=== PATIENT | female | born 1955 | race Caucasian/White ===

== ENCOUNTER 2019-11-24 14:43 | Outpatient (CLI) | payer BC, SELFPAY ==
--- NOTE | ~2019-11-24 | DEXA_ITS ---
Bone Density Report Name: Katlyn Strong Age: 64 Sex: Female Ethnicity: White Date of : 1955 Indication: postmenopausal; height loss; prior fracture; Referring Provider: Salome Johnson Study: Bone densitometry was performed. Exam Date: November 24, 2019 Accession number: [id number] Bone Density: Region BMD T-score Z-score Classification AP Spine (L1-L4) 1.020 -0.2 1.5 Normal Femoral Neck (Left) 0.625 -2.0 -0.5 Osteopenia Total Hip (Left) 0.798 -1.2 0.0 Osteopenia Total Hip Bilateral Avg 0.797 -1.2 0.0 Osteopenia Femoral Neck (Right) 0.662 -1.7 -0.2 Osteopenia Total Hip (Right) 0.795 -1.2 0.0 Osteopenia World Health Organization criteria for BMD impression classify patients as: Normal (T-score at or above -1.0), Osteopenia (T-score between -1.0 and -2.5), or Osteoporosis (T-score at or below -2.5). 10-year Fracture Risk: FRAX not reported because: Treated for osteoporosis Clinical Information Provided by Patient: Has had a low trauma fracture Smokes Is being treated for osteoporosis Has used the following medications: Vitamin D, Calcium Patient maximum height was 68 Menopause Age: 50 No regular weight bearing exercise Drinks caffeinated beverages Onset of menses at age 14 Number of children 2 Impression: The patient has low bone mass, based on the Left Femoral Neck T-score. The patient has risk factors, including: smoking, previous fracture. Discussion: It is important to ask patients whether they are taking their medications and to encourage continued and appropriate compliance with their osteoporosis therapies to reduce fracture risk. It is also important to review their risk factors and encourage appropriate calcium and vitamin D intakes, exercise, fall prevention and other lifestyle measures. Follow-Up: Consider a repeat BMD and Vertebral Fracture Assessment (VFA) exam in 2 years or sooner if medically necessary, to reassess this patient's status. Reported by: MELCHOR on 11/24/2019 3:13:00 PM. Reviewed, dictated and finalized at location A. COLTEN
--- NOTE | ~2019-11-24 | MM_ITS ---
EXAMINATION: MM screening shayna BI w philip HISTORY: Screening mammogram TECHNIQUE: Craniocaudal and mediolateral oblique 3-D tomosynthesis images were obtained and synthetic 2-D images were generated. CAD analysis was submitted and interpreted. COMPARISON: 04/18/2018, 08/03/2014 bilateral digital screening mammogram examinations BREAST PARENCHYMAL COMPOSITION: There are scattered areas of fibroglandular density. FINDINGS: Possible 4 mm mass situated anteriorly in the inner aspect of the mid medial right breast ( craniocaudal image 39/79). Diagnostic right mammogram and right breast ultrasound examination are rec ommended. Otherwise there is is no evidence of suspicious mass, calcification, or architectural distortion to suggest malignancy in either breast. There has been no other suspicious interval change. IMPRESSION: 1. Possible 4 mm mass, right breast 2. Diagnostic right mammogram and right breast ultrasound examination are recommended. BI-RADS Category 0: Incomplete: Needs additional imaging evaluation. Reviewed, dictated and finalized at location A. IMPRESSION: 1. Possible 4 mm mass, right breast 2. Diagnostic right mammogram and right breast ultrasound examination are recom mended. BI-RADS Category 0: Incomplete: Needs additional imaging evaluation.
== END 2019-11-24 14:44 | disposition home or self-care (01) ==
LOC: ANHIMG 14:45
PROVIDERS: PCP Internal Medicine; Visit Provider Nurse Practitioner
DX: Z12.31 Encounter for screening mammogram for malignant neoplasm of breast (principal); Z13.820 Encounter for screening for osteoporosis; R92.8 Other abnormal and inconclusive findings on diagnostic imaging of breast; M85.88 Other specified disorders of bone density and structure, other site; M85.852 Other specified disorders of bone density and structure, left thigh; M85.851 Other specified disorders of bone density and structure, right thigh
CPT/HCPCS: 77063; 77067; 77080

== ENCOUNTER 2019-12-12 12:58 | Outpatient (CLI) | payer BC, SELFPAY ==
--- NOTE | ~2019-12-12 | US_ITS ---
US breast RT complete 12/12/2019 13:42 Indication: Possible mass seen on recent mammogram. Procedure: High-resolution ultrasound of the right breast. Patient refused mammogram. Comparison: Mammogram dated 11/24/2019 Findings: Normal heterogeneous echotexture throughout the right breast without focal mass. Impression: 1: Normal right breast ultrasound. Diagnostic right mammogram recommended for complete evaluation. BI-RADS CATEGORY 0 - INCOMPLETE STUDY, NEED ADDITIONAL IMAGING EVALUATION. Reviewed, dictated and finalized at location A. Impression: 1: Normal right breast ultrasound. Diagnostic right mammogram recommended for c omplete evaluation. BI-RADS CATEGORY 0 - INCOMPLETE STUDY, NEED ADDITIONAL IMAGING EVALUATION.
== END 2019-12-12 12:59 | disposition home or self-care (01) ==
PROVIDERS: PCP Internal Medicine; Visit Provider Nurse Practitioner
DX: R92.8 Other abnormal and inconclusive findings on diagnostic imaging of breast (principal)
CPT/HCPCS: 76641

== ENCOUNTER 2020-01-29 11:34 | Outpatient (CLI) | payer BC, SELFPAY ==
--- NOTE | ~2020-01-29 | XR_ITS ---
EXAMINATION: XR chest 2V EXAM DATE: 01/29/2020 11:50 INDICATION: Cough. TECHNIQUE: Frontal and lateral projections of the chest obtained and reviewed. There is no prior camryn dy for comparison. FINDINGS: Mild hyperinflation. The lungs are clear. There are no pleural effusions. The cardiomedia stinal silhouette is within normal limits. There is no pneumothorax suspected. The bones and soft t issues are unremarkable. There is no significant interval change. IMPRESSION: No acute cardiopulmonary findings. Reviewed, dictated and finalized at location A.
== END 2020-01-29 11:35 | disposition home or self-care (01) ==
PROVIDERS: PCP Internal Medicine; Visit Provider Nurse Practitioner
DX: R05 Cough (principal)
CPT/HCPCS: 71046

== ENCOUNTER 2020-02-09 13:20 | Outpatient (CLI) | payer BC, SELFPAY ==
--- NOTE | ~2020-02-09 | XR_ITS ---
EXAMINATION: XR chest 2V DATE: 02/09/2020 13:37 INDICATION: Cough and shortness of breath TECHNIQUE: Frontal and lateral views of the chest are obtained COMPARISON: 01/29/2020 FINDINGS: The lungs are free of acute opacities. There is no pleural effusion or pneumothorax. The ca rdiomediastinal silhouette is normal. There is mild thoracic spondylosis. IMPRESSION: 1. No acute cardiopulmonary abnormality. Reviewed, dictated and finalized at location B.
== END 2020-02-09 13:21 | disposition home or self-care (01) ==
LOC: ANHIMG 13:26
PROVIDERS: PCP Internal Medicine; Visit Provider Internal Medicine
DX: R05 Cough (principal); R06.02 Shortness of breath
CPT/HCPCS: 71046

== ENCOUNTER → 2020-11-13 12:35 | Outpatient (CLI) | payer MEDICARE, SELFPAY ==
--- NOTE | ~2020-11-13 | CT_ITS ---
EXAMINATION:CT lung screening DATE: 11/13/2020 12:49 INDICATION: Personal history of tobacco dependence. Current smoker with 40 pack year history. TECHNIQUE: Computed tomography (CT) of the chest was performed without intravenous contrast. Automate d exposure control and iterative reconstruction technique were employed. The dose-length product (DLP ) was 111.25 mGy-cm. COMPARISON: Chest CT 04/18/2018 FINDINGS: There is mild scarring at the lung apices. There is mild emphysema. There is mild atelectas is in right middle lobe, lingula, and right lower lobe. No pleural effusion. The heart size is normal . No pericardial effusion. There is moderate thoracic spondylosis. IMPRESSION: 1. Lung-RADS category 2: Benign appearance or behavior. Continue annual screening with noncontrast lo w-dose chest CT in 12 months. Reviewed, dictated and finalized at location B. IMPRESSION: 1. Lung-RADS category 2: Benign appearance or behavior. Continue annual screeni ng with noncontrast low-dose chest CT in 12 months.
== END ==
PROVIDERS: PCP Internal Medicine; Visit Provider Internal Medicine
DX: Z87.891 Personal history of nicotine dependence (principal)
CPT/HCPCS: 71271

== ENCOUNTER 2021-01-12 11:56 | Outpatient (CLI) | payer MEDICARE, MEDICAID, SELFPAY ==
--- NOTE | ~2021-01-12 | XR_ITS ---
EXAMINATION: XR hand LT min 3V DATE: 01/12/2021 12:24 INDICATION: Left hand pain. TECHNIQUE: 3 views of left hand were obtained. COMPARISON: None. FINDINGS: Bone alignment normal. No fracture. There is mild osteoarthritis of triscaphe joint, first carpometacarpal joint, first and second metacarpophalangeal joints, and most of the interphalangeal j oints. IMPRESSION: 1. Mild polyarticular osteoarthritis. Reviewed, dictated and finalized at location A.
== END 2021-01-12 11:57 | disposition home or self-care (01) ==
LOC: ANHIMG 12:10
PROVIDERS: PCP Internal Medicine; Visit Provider Internal Medicine
DX: M19.042 Primary osteoarthritis, left hand (principal)
CPT/HCPCS: 73130

== ENCOUNTER 2022-11-10 09:21 | Outpatient (CLI) | payer MEDICARE, MEDICAID, SELFPAY ==
[2022-11-10 19:20] LABS: Basophils Percent Auto 0.8 % (0.2-1.2); Eosinophils Absolute Auto 0.1 K/mm3 (0-0.3); Eosinophils Percent Auto 2.3 % (0-4.4); Hematocrit 44.4 % (37.0-47.0); Hemoglobin 14.9 g/dL (12.0-15.0); Immature Granulocyte Absolute 0.01 K/mm3 (0.00-0.031); Immature Granulocyte Percent A 0.2 % (0-0.5); Lymphocytes Absolute Auto 1.78 K/mm3 (0.9-3.2); Lymphocytes Percent Auto 34.4 % (18.3-44.2); Mean Corpuscular HGB Conc 33.6 g/dl (32-36); Mean Corpuscular Hemoglobin 32.7 pg (26-34); Mean Corpuscular Volume 97.6 fl (80-100); Mean Platelet Volume 12.1 fl (7.4-10.4); Monocytes Absolute Auto 0.3 K/mm3 (0.1-0.6); Monocytes Percent Auto 5.6 % (2.6-8.5); Neutrophils Absolute Auto 2.9 K/mm3 (1.3-6.7); Neutrophils Percent Auto 56.7 % (45.5-73.1); Platelet Count Result 185 k/mm3 (150-375); Red Blood Count 4.55 M/mm3 (4.2-5.4); Red Cell Distribution Width 12.2 % (11.5-14.5); White Blood Count 5.2 K/mm3 (4.5-10.0)
[2022-11-10 19:52] LABS: Alanine Aminotransferase 36 U/L (6-35); Albumin Level 4.4 g/dL (3.5-5.1); Alkaline Phosphatase 78 U/L (38-126); Anion Gap 6 mmol/L (8-16); Aspartate Amino Transferase 64 U/L (14-36); Bilirubin,Total 0.8 mg/dL (0.2-1.3); Blood Urea Nitrogen 9 mg/dL (7-17); Calcium 9.1 mg/dL (8.4-10.2); Carbon Dioxide 27 mmol/L (22-30); Chloride 105 mmol/L (98-107); Cholesterol 171 mg/dL (0-200); Estimated Glomerular Filt Rate > 60; Glucose 85 mg/dL (65-110); HDL Direct 44 mg/dL; Potassium 3.9 mmol/L (3.4-5.0); Sodium 138 mmol/L (137-145); Triglycerides 122 mg/dL (<150)
[2022-11-10 20:03] LABS: LDL Cholesterol Direct 93 mg/dL
== END 2022-11-10 09:22 | disposition home or self-care (01) ==
LOC: ANHBWCLAB 09:24
PROVIDERS: PCP Family Medicine; Visit Provider Nurse Practitioner
DX: Z00.00 Encounter for general adult medical examination without abnormal findings (principal); E78.5 Hyperlipidemia, unspecified; R23.2 Flushing; F32.9 Major depressive disorder, single episode, unspecified; F41.1 Generalized anxiety disorder
CPT/HCPCS: 36415; 80053; 80061; 84443; 85025

== ENCOUNTER 2023-05-12 09:21 | Outpatient (CLI) | payer MEDICARE, MEDICAID, SELFPAY ==
[2023-05-12 19:40] LABS: Appearance Urine Clear (Clear); Bilirubin Urine Negative (Negative); Blood Urine Negative (Negative); Color Urine Yellow (Yellow); Glucose Urine UA Negative (Negative); Ketones Urine Negative (Negative); Leukocyte Esterase Ur Negative LEU/UL (NEGATIVE); Nitrate Urine Negative (Negative); Protein Urine Negative (Negative); Specific Grav Ur 1.004 (1.001-1.035); Urobilinogen Urine 0.2 mg/dL (<2.0); pH Urine 6.5 (5.0-9.0)
[2023-05-12 19:42] LABS: Basophils Percent Auto 0.5 % (0.2-1.2); Eosinophils Absolute Auto 0.1 K/mm3 (0-0.3); Eosinophils Percent Auto 1.8 % (0-4.4); Hematocrit 47.2 % (37.0-47.0); Immature Granulocyte Absolute 0.01 K/mm3 (0.00-0.031); Immature Granulocyte Percent A 0.2 % (0-0.5); Lymphocytes Absolute Auto 1.94 K/mm3 (0.9-3.2); Mean Corpuscular HGB Conc 31.8 g/dl (32-36); Mean Corpuscular Hemoglobin 32.8 pg (26-34); Mean Corpuscular Volume 103.1 fl (80-100); Mean Platelet Volume 11.8 fl (7.4-10.4); Monocytes Absolute Auto 0.3 K/mm3 (0.1-0.6); Monocytes Percent Auto 5.3 % (2.6-8.5); Neutrophils Absolute Auto 3.7 K/mm3 (1.3-6.7); Neutrophils Percent Auto 60.2 % (45.5-73.1); Platelet Count Result 204 k/mm3 (150-375); Red Blood Count 4.58 M/mm3 (4.2-5.4); Red Cell Distribution Width 12.2 % (11.5-14.5); White Blood Count 6.1 K/mm3 (4.5-10.0)
[2023-05-12 19:59] LABS: Add Urine Microscopic? NO
[2023-05-12 20:33] LABS: Alanine Aminotransferase 40 U/L (6-35); Albumin Level 4.8 g/dL (3.5-5.1); Alkaline Phosphatase 80 U/L (38-126); Anion Gap 4 mmol/L (8-16); Aspartate Amino Transferase 64 U/L (14-36); Bilirubin,Total 0.9 mg/dL (0.2-1.3); Blood Urea Nitrogen 8 mg/dL (7-17); Calcium 9.5 mg/dL (8.4-10.2); Carbon Dioxide 30 mmol/L (22-30); Chloride 103 mmol/L (98-107); Cholesterol 195 mg/dL (0-200); Estimated Glomerular Filt Rate > 60; Glucose 88 mg/dL (65-110); HDL Direct 62 mg/dL; Potassium 4.2 mmol/L (3.4-5.0); Sodium 137 mmol/L (137-145); Triglycerides 109 mg/dL (<150)
[2023-05-12 20:45] LABS: LDL Cholesterol Direct 100 mg/dL
== END 2023-05-12 09:22 | disposition home or self-care (01) ==
PROVIDERS: PCP Nurse Practitioner Adult Health; Visit Provider Nurse Practitioner Adult Health
DX: E78.5 Hyperlipidemia, unspecified (principal); R32 Unspecified urinary incontinence
CPT/HCPCS: 36415; 80053; 80061; 81003; 85025

== ENCOUNTER 2023-06-17 09:01 | Outpatient (CLI) | payer MEDICARE, MEDICAID, SELFPAY ==
--- NOTE | ~2023-06-17 | XR_ITS ---
EXAMINATION: XR chest 2V DATE: 06/17/2023 09:11 INDICATION: Pneumonia, unspecified TECHNIQUE: Frontal and lateral views of the chest are obtained COMPARISON: 02/09/2020 FINDINGS: The lungs are free of acute opacities. No pleural effusion or pneumothorax. The cardiomedia stinal silhouette is normal. There is moderate thoracic spondylosis. IMPRESSION: 1. No acute cardiopulmonary abnormality. Reviewed, dictated and finalized at location L. NG DEMONSTRATOR
== END 2023-06-17 09:02 | disposition home or self-care (01) ==
PROVIDERS: PCP Nurse Practitioner Adult Health; Visit Provider Nurse Practitioner Adult Health
DX: J18.9 Pneumonia, unspecified organism (principal)
CPT/HCPCS: 71046

== ENCOUNTER 2023-07-14 14:12 | Outpatient (CLI) | payer OTHER, MEDICAID, SELFPAY ==
--- NOTE | ~2023-07-14 | XR_ITS ---
Clinical Indication: Pneumonia PA and lateral views of the chest: Comparison: 06/17/2023 Findings: The lungs are clear, without evidence of focal consolidation or pleural effusion. Cardiome diastinal silhouette is within normal limits. Bones and soft tissues are unremarkable. Impression: Normal chest. Reviewed, dictated and finalized at [facility]. S SILVERER Impression: Normal chest.
== END 2023-07-14 14:13 | disposition home or self-care (01) ==
PROVIDERS: PCP Nurse Practitioner Adult Health; Visit Provider Nurse Practitioner Adult Health
DX: R05.9 Cough, unspecified (principal); J18.9 Pneumonia, unspecified organism
CPT/HCPCS: 71046

== ENCOUNTER 2023-08-18 15:07 | Outpatient (CLI) | payer OTHER, MEDICAID, SELFPAY ==
--- NOTE | ~2023-08-18 | CT_ITS ---
EXAMINATION: CT lung screening DATE: 08/18/2023 15:49 INDICATION: Z87.891 - Personal history of nicotine dependence TECHNIQUE: Computed tomography (CT) of the chest was performed without intravenous contrast. Addition al 3D reconstructions utilizing coronal maximum intensity projection (MIP) were performed. Automated exposure control and iterative reconstruction technique were employed. The dose-length product was 94 .54 mGy-cm. COMPARISON: 11/13/2020 FINDINGS: Minimal emphysema and minimal right apical pleural-parenchymal scarring. No significant change in mil d lingular discoid atelectasis/scarring in the lingula, right middle and bilateral lower lobes. 2 mm right upper lobe nodule on series 4, image 49. No pneumonia, pulmonary edema or pleural effusion. Hea rt size is normal. No pericardial effusion. Small sliding-type hiatal hernia. Thoracic aorta is petros l in caliber. No pathologically enlarged thoracic lymphadenopathy. Moderate thoracic spondylosis with chronic mild anterior wedging at T7 and T8. IMPRESSION: 1. Lung-RADS category 2: Benign appearance or behavior. Continue annual screening with noncontrast lo w-dose chest CT in 12 months. Reviewed, dictated and finalized at location A. ERCIAL MAINTENANCE TECHNICIAN IMPRESSION: 1. Lung-RADS category 2: Benign appearance or behavior. Continue annual screeni ng with noncontrast low-dose chest CT in 12 months.
== END 2023-08-18 15:08 | disposition home or self-care (01) ==
LOC: ANHIMG 15:08
PROVIDERS: PCP Nurse Practitioner Adult Health; Visit Provider Nurse Practitioner Adult Health
DX: Z12.2 Encounter for screening for malignant neoplasm of respiratory organs (principal); Z87.891 Personal history of nicotine dependence
CPT/HCPCS: 71271

== ENCOUNTER 2023-11-02 10:16 | Outpatient (CLI) | payer OTHER, MEDICAID, SELFPAY ==
[2023-11-02 19:26] LABS: Basophils Percent Auto 0.6 % (0.2-1.2); Eosinophils Absolute Auto 0.2 K/mm3 (0-0.3); Hematocrit 41.5 % (37.0-47.0); Hemoglobin 13.5 g/dL (12.0-15.0); Immature Granulocyte Absolute 0.01 K/mm3 (0.00-0.031); Immature Granulocyte Percent A 0.2 % (0-0.5); Lymphocytes Absolute Auto 1.54 K/mm3 (0.9-3.2); Lymphocytes Percent Auto 30.5 % (18.3-44.2); Mean Corpuscular HGB Conc 32.5 g/dl (32-36); Mean Corpuscular Hemoglobin 32.3 pg (26-34); Mean Corpuscular Volume 99.3 fl (80-100); Mean Platelet Volume 10.9 fl (7.4-10.4); Monocytes Absolute Auto 0.4 K/mm3 (0.1-0.6); Monocytes Percent Auto 7.1 % (2.6-8.5); Neutrophils Percent Auto 58.6 % (45.5-73.1); Platelet Count Result 203 k/mm3 (150-375); Red Blood Count 4.18 M/mm3 (4.2-5.4); Red Cell Distribution Width 11.9 % (11.5-14.5); White Blood Count 5.1 K/mm3 (4.5-10.0)
[2023-11-02 19:42] LABS: Alanine Aminotransferase 29 U/L (6-35); Albumin Level 4.5 g/dL (3.5-5.1); Alkaline Phosphatase 79 U/L (38-126); Anion Gap 7 mmol/L (4-12); Aspartate Amino Transferase 51 U/L (14-36); Bilirubin,Total 0.7 mg/dL (0.2-1.3); Blood Urea Nitrogen 13 mg/dL (7-17); Calcium 9.6 mg/dL (8.4-10.2); Carbon Dioxide 26 mmol/L (22-30); Chloride 105 mmol/L (98-107); Cholesterol 191 mg/dL (0-200); Estimated Glomerular Filt Rate > 60; Glucose 95 mg/dL (65-110); HDL Direct 64 mg/dL; Potassium 4.1 mmol/L (3.4-5.0); Sodium 138 mmol/L (137-145); Triglycerides 93 mg/dL (<150)
[2023-11-02 19:53] LABS: LDL Cholesterol Direct 101 mg/dL
[2023-11-02 19:58] LABS: Vitamin D 25 Hydroxy 30.5 ng/mL
[2023-11-02 20:13] LABS: Hemoglobin A1C 5.5 % (<5.7)
[2023-11-02 20:57] LABS: Folic Acid > 20.0 ng/mL (2.76->20)
== END 2023-11-02 10:17 | disposition home or self-care (01) ==
PROVIDERS: PCP Nurse Practitioner Adult Health; Visit Provider Nurse Practitioner Adult Health
DX: E78.5 Hyperlipidemia, unspecified (principal); R53.83 Other fatigue; Z79.899 Other long term (current) drug therapy
CPT/HCPCS: 36415; 80053; 80061; 82306; 82607; 82746; 83036; 85025

== ENCOUNTER 2024-05-03 09:31 | Outpatient (CLI) | payer OTHER, MEDICAID, SELFPAY ==
[2024-05-03 20:34] LABS: Alanine Aminotransferase 34 U/L (6-35); Albumin Level 4.3 g/dL (3.5-5.1); Alkaline Phosphatase 84 U/L (38-126); Anion Gap 7 mmol/L (4-12); Aspartate Amino Transferase 49 U/L (14-36); Bilirubin,Total 0.8 mg/dL (0.2-1.3); Blood Urea Nitrogen 14 mg/dL (7-17); Calcium 9.2 mg/dL (8.4-10.2); Carbon Dioxide 27 mmol/L (22-30); Chloride 104 mmol/L (98-107); Cholesterol 219 mg/dL (0-200); Estimated Glomerular Filt Rate > 60; Glucose 99 mg/dL (65-110); HDL Direct 52 mg/dL; Potassium 4.4 mmol/L (3.4-5.0); Sodium 138 mmol/L (137-145); Triglycerides 120 mg/dL (<150)
[2024-05-03 20:45] LABS: LDL Cholesterol Direct 120 mg/dL
[2024-05-03 20:59] LABS: Hemoglobin A1C 5.9 % (<5.7)
== END 2024-05-03 09:32 | disposition home or self-care (01) ==
LOC: ANHBWCLAB 09:33
PROVIDERS: PCP Nurse Practitioner Adult Health; Visit Provider Nurse Practitioner Adult Health
DX: E78.5 Hyperlipidemia, unspecified (principal); R63.5 Abnormal weight gain; Z79.899 Other long term (current) drug therapy; R53.83 Other fatigue
CPT/HCPCS: 36415; 80053; 80061; 82306; 83036

== ENCOUNTER 2024-08-23 09:03 | Outpatient (CLI) | payer OTHER, MEDICAID, SELFPAY ==
--- NOTE | ~2024-08-23 | XR_ITS ---
Lumbosacral Spine: AP and lateral views Clinical History: Pain Findings: There is probable mild S-shaped scoliosis of the thoracolumbar spine, incompletely imaged. No fracture or subluxation seen in the lumbar spine. There is multilevel mild degenerative distended. There is multilevel severe facet arthropathy throughout the lumbar spine. The intervertebral disc sp aces are preserved. The sacroiliac joints are normally outlined. Impression: Diffuse, advanced facet arthropathies of the lumbar spine. Mild degenerative disc change. Reviewed, dictated and finalized at location M. LOADER Impression: Diffuse, advanced facet arthropathies of the lumbar spine. Mild degenerative disc change.
--- NOTE | ~2024-08-23 | XR_ITS ---
AP and lateral views of the left hip Clinical history: Pain Findings: No acute fracture or dislocation is seen. Osseous alignment is anatomic. Left hip is intact . Soft tissues are unremarkable. Impression: No significant abnormality is seen. Reviewed, dictated and finalized at location M. STRATE ASSISTANT Impression: No significant abnormality is seen.
--- OUTSIDE RECORDS SUMMARY | 2024-08-23 09:10 | XMS_ITS | Referral Summary ---
Author Organization [facility] Address [address] [place] [address] Care Team Providers Care Bridge Mechanic Name Role Phone Unavailable Primary Care Provider Unavailabl e Source Comments [facility],non-owned Affiliates and Associated Physician Practices is amultiple site organization consisting of ambulatory clinics and hospital sitesin [place], [place], [place] and [place]. This disclosure is being madepursuant to the Care Everywhere program and may not contain all information available regarding this patient. Last updated 18.[facility] Allergies No known active allergies Medications * Be aware that medications may not be up to date on this document. Alwaysverify current medications with the patient. Medication Sig Dispensed Refills Start Date End Date Status azithromycin (Zithromax) 250 MG tablet Take 2 tablets on day 1, then take 1 tablet daily for 4 days 6 tablet 2023 Active methylPREDNISolone (Medrol Dosepak) 4 MG tablet Take by mouth as directed <!--EPICS-->Follow package insert dosing for six day supply.<!--EPICE-- > 21 tablet 2023 Active albuterol HFA (ProAir HFA) 108 (90 Base) MCG/ACT inhaler Inhale 2 (two) puffs by mouth every 4 hours as needed 8.5 g 2023 Active Social History Tobacco Use Types Packs/Day Years Used Date Smoking Tobacco: Never Assessed Sex and Gender Information Value Date Recorded Sex Assigned at Not on file Gender Identity Not on file Sexual Orientation Not on file Last Filed Vital Signs Vital Sign Reading Time Taken Comments Blood Pressure 185/99 2023 9:03 AM CONTINUOUS STILL OPERATOR Pulse 58 2023 9:08 AM CONTINUOUS STILL OPERATOR Temperature 36.4 C (97.6 F) 2023 3:43 AM CONTINUOUS STILL OPERATOR Respiratory Rate 14 2023 9:08 AM CONTINUOUS STILL OPERATOR Oxygen Saturation 95% 2023 9:08 AM CONTINUOUS STILL OPERATOR Inhaled Oxygen Concentration - - Weight 83.9 kg (185 lb) 2023 9:03 AM CONTINUOUS STILL OPERATOR Height 170.2 cm (5' 7 ) 2023 9:03 AM CONTINUOUS STILL OPERATOR Body Mass Index 28.98 2023 9:03 AM CONTINUOUS STILL OPERATOR Plan of Treatment [place] [address]
--- OUTSIDE RECORDS SUMMARY | 2024-08-23 09:10 | XMS_ITS | Clinical Summary ---
Author Organization [facility] Address [address], [facility] [address] [place] [address] Phone Care Team Providers Care Picking Crew Supervisor Name Role Phone Darren Pan MD Primary Care Provider [phone] João Pedraza MD Unavailable Unavailable Allergies Active Allergy Reactions Criticality Noted Date Comments Oxytocin Other (see Comments) 02/07/2016 Severe cramping Medications polyethylene glycol (MIRALAX) Powder Mix the entire bottle with 64 oz of a clear liquid. Use as directed by the office for colonoscopy prep. 255 g 0 6 Active diclofenac (VOLTAREN) 75 MG Tablet Delayed Response Take 75 mg by mouth daily. 6 Active traZODone (DESYREL) 50 MG Tablet Take 50 mg by mouth nightly. 6 Active buPROPion (WELLBUTRIN) 75 MG Tablet Take 75 mg by mouth daily. 6 Active fish oil-omega-3 fatty acids 1000 MG Capsule Take 1,000 mg by mouth daily. NOT BEEN TAKING Active clonazePAM (KLONOPIN) 1 MG Tablet Take 1 mg by mouth daily as needed. 6 Active Cholecalciferol (VITAMIN D-3) 400 UNIT Tablet Take 1 Tab by mouth daily. Active valACYclovir (VALTREX) 500 MG Tablet Take 500 mg by mouth 2 times daily as needed. Active Active Problems No known active problems Immunizations Immunization Administration Dates Next Due Covid-19, Mrna, Lnp-s, Pf, 30 Mcg/0.3 Ml Dose (Evelio campos) 01/27/2021 Family History Medical History Relation Name Comments Cancer Father MULTIPLE MYELOM A Liver Cancer Mother Relation Name Status Comments Father Mother Social History Tobacco Use Types Packs/Day Years Used Date Smoking Tobacco: Some Days Cigarettes 0.5 35 Alcohol Use Standard Drinks/Week Comments No 0 (1 standard drink = 0.6 oz pur e alcohol) occasionally but rarely Comments No Sex and Gender Information Value Date Recorded Sex Assigned at Not on file Legal Sex Female 11:43 PM CDT Gender Identity Not on file Sexual Orientation Not on file 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 on file Not on file Not on f ile Last Filed Vital Signs Vital Sign Reading Time Taken Comments Blood Pressure 113/59 03/31/2016 11:15 AM CDT Pulse 79 03/31/2016 10:05 AM CDT Temperature 36 C (96.8 F) 03/31/2016 11:15 AM CDT Respiratory Rate 12 03/31/2016 11:15 AM CDT Oxygen Saturation 100% 03/31/2016 11:15 AM CDT Inhaled Oxygen Concentration - - Weight 75.8 kg (167 lb) 03/27/2016 1:00 PM CDT Height 172.7 cm (5' 8 ) 03/27/2016 1:00 PM CDT Body Mass Index 25.39 03/27/2016 1:00 PM CDT Plan of Treatment Health Maintenance Due Date Last Done Comments DEXA Bone Density 1955 Hepatitis C Virus (HCV) Screening 1955 TdaP Immunization 1955 Cologuard 2005 Immunochemical Fecal Occult Blood 2005 Mammogram 2005 Pneumococcal Immunization (5 0+ years) (1 of 1 - PCV) 2005 Zoster Immunization (1 of 2) 2005 Influenza Immunization (#1) 2024 SARS-COV-2 Immunization ( season) 2024 02/17/2021, 01/27/2021 Colonoscopy 03/31/2026 03/31/2016 Colorectal Cancer Screening 03/31/2026 Respiratory Syncytial Virus (RSV) Immunization (Adult) (1 - 1-dose 75+ series) 2030 03/31/2016 Hepatitis B Immunization Aged Out No longer eligible based on patient's age to complete this topic Meningococcal Immunization (ACWY) Aged Out No longer eligible b ased on patient's age to complete this topic Rotavirus Immunization Aged Out No lo nger eligible based on patient's age to complete this [place] [address] [facility] Care Teams Picking Crew Supervisor Relationship Specialty Start Date End Date Darren Pan MD [address] [place] [address] PCP - General Internal Medicine 02/07/16 João Pedraza MD [address] [place] [address] Consulting Physician Urology 02/07/16
--- OUTSIDE RECORDS SUMMARY | 2024-08-23 09:10 | XMS_ITS | Clinical Summary ---
Author Organization [facility] Address [address] [place] [address] Care Team Providers Care Bran Mixer Name Role Phone Unavailable Primary Care Provider Unavailabl e Source Comments [facility],non-owned Affiliates and Associated Physician Practices is amultiple site organization consisting of ambulatory clinics and hospital sitesin [place], [place], [place] and [place]. This disclosure is being madepursuant to the Care Everywhere program and may not contain all information available regarding this patient. Last updated 18.[facility] Allergies No known active allergies Medications * [...] Comments Blood Pressure 185/99 2023 9:03 AM OXYGEN PLANT OPERATOR Pulse 58 2023 9:08 AM OXYGEN PLANT OPERATOR Temperature 36.4 C (97.6 F) 2023 3:43 AM OXYGEN PLANT OPERATOR Respiratory Rate 14 2023 9:08 AM OXYGEN PLANT OPERATOR Oxygen Saturation 95% 2023 9:08 AM OXYGEN PLANT OPERATOR Inhaled Oxygen Concentration - - Weight 83.9 kg (185 lb) 2023 9:03 AM OXYGEN PLANT OPERATOR Height 170.2 cm (5' 7 ) 2023 9:03 AM OXYGEN PLANT OPERATOR Body Mass Index 28.98 2023 9:03 AM OXYGEN PLANT OPERATOR Plan of Treatment Health Maintenance Due Date Last Done Comments BONE DENSITY TESTING 1955 COLOGUARD (AGES 45-75) - COL ON CA SCREENING 1955 COLON MONITORING 1955 COLONOSCOPY - COLON CA SCREENING 1955 CT COLONOGRAPHY - COLON CA SCREENING 1955 Colorectal Cancer Screening 1955 FIT - COLON CA SCREENING 1955 FLEX SIG - COLON CA SCREENING 1955 LIPID TESTING 1955 MAMMOGRAM 1955 HEPATITIS C SCREENING 05/25/1973 DTAP/TDAP/TD VACCINES (1 - Tdap) 1974 PNEUMOCOCCAL VACCINE 50+ (1 of 1 - PCV) 2005 ZOSTER VACCINE (1 of 2) 2005 COVID-19 VACCINE (2 - 2023-2 5 season) 2024 01/27/2021 INFLUENZA VACCINE (#1) 2024 DEPRESSION SCREENING 07/05/2024 MEDICARE AWV CALENDAR YEAR 2024 Respiratory Syncytial Virus (RSV) Vaccine Pt: or over 60 yrs (1 - 1-dose 75+ series) 2030 HEPATITIS B VACCINE Aged Out No longe r eligible based on patient's age to complete this topic HIB VACCINE Aged Out No longer eligi ble based on patient's age to complete this topic HPV VACCINE Aged Out No longer eligi ble based on patient's age to complete this topic MENINGOCOCCAL (Group B) VACCINE Aged Out No longer eligible based on patient's age to complete this topic MENINGOCOCCAL VACCINE Aged Out No daisy nichole eligible based on patient[place] [address]
--- OUTSIDE RECORDS SUMMARY | 2024-08-23 09:10 | XMS_ITS | Patient Health Summary ---
Author Organization [facility] mobile mum Address [address] [place] [address] Care Team Providers Care Carton Stenciler Name Role Phone Unavailable Primary Care Provider Unavailabl e Note from [facility],non-owned Affiliates and Associated Physician Practices is amultiple site organization consisting of ambulatory clinics and hospital sitesin [place], [place] and [place]. This disclosure is being madepursuant to the Care Everywhere program and may not contain all information available regarding this patient. Last updated 18.[facility] mobile mum Allergies No known active allergies Medications * Be aware that medications may not be up to date on this document. Alwaysverify current medications with the patient. * azithromycin (Zithromax) 250 MG tablet(Started 2023) Take 2 tablets on day 1, then take 1 tablet daily for 4 days * methylPREDNISolone (Medrol Dosepak) 4 MG tablet(Started 2023) Take by mouth as directed <!--EPICS-->Follow package insert dosing for six day supply.<!--EPICE--> * albuterol HFA (ProAir HFA) 108 (90 Base) MCG/ACT inhaler(Started 2023) Inhale 2 (two) puffs by mouth every 4 hours as needed Social History Tobacco Use Types Packs/Day Years Used Date Smoking Tobacco: Never Assessed Sex and Gender Information Value Date Recorded Sex Assigned at Not on file Gender Identity Not on file Sexual Orientation Not on file Last Filed Vital Signs Vital Sign Reading Time Taken Comments Blood Pressure 185/99 2023 9:03 AM BOX OFFICE MANAGER Pulse 58 2023 9:08 AM BOX OFFICE MANAGER Temperature 36.4 C (97.6 F) 2023 3:43 AM BOX OFFICE MANAGER Respiratory Rate 14 2023 9:08 AM BOX OFFICE MANAGER Oxygen Saturation 95% 2023 9:08 AM BOX OFFICE MANAGER Inhaled Oxygen Concentration - - Weight 83.9 kg (185 lb) 2023 9:03 AM BOX OFFICE MANAGER Height 170.2 cm (5' 7 ) 2023 9:03 AM BOX OFFICE MANAGER Body Mass Index 28.98 2023 9:03 AM BOX OFFICE MANAGER Procedures * CARDIAC EKG ORDER(Performed 05/31/2023) * TROPONIN-I HIGH SENSITIVE REFLEX 1HOUR(Performed 2023) * XR CHEST 1VW PORTABLE(Performed 2023) Performed for SOB (shortness of breath), Subacute cough, Chest congestion * EKG 12-LEAD(Performed 2023) Performed for SOB (shortness of breath), Subacute cough, Chest congestion * MAGNESIUM BLOOD(Performed 2023) * PT-INR(Performed 2023) * TROPONIN-I HIGH SENSITIVE BASELINE + 1HR(Performed 2023) * CBC W AUTO DIFFERENTIAL(Performed 2023) * COMPREHENSIVE METABOLIC PANEL(Performed 2023) * SARS-COV-2 (COVID-19) FLU A/B RSV PCR RAPID(Performed 2023) Results * CARDIAC EKG ORDER (05/31/2023 6:02 PM BOX OFFICE MANAGER) Narrative 05/31/2023 6:02 PM BOX OFFICE MANAGER Ordered by an unspecified provider. Scanned Document CARDIAC SERVICES ORD ERABLES * TROPONIN-I HIGH SENSITIVE REFLEX 1HOUR (2023 8:58 AM BOX OFFICE MANAGER) Troponin I High Sensitive <3 <=14 ng/L 2023 10:05 AM BOX OFFICE MANAGER [facility] Delta Troponin I HS 2023 10:05 AM BOX OFFICE MANAGER [facility] Comment:Result exceeds linea rity range. A delta value is unable to be calculated. Blood BLOOD SPECIMEN / Unknown Venipuncture / Unknown 2023 8:58 AM BOX OFFICE MANAGER 2023 9:48 AM BOX OFFICE MANAGER Miley Sanon MD LAB - CHEMISTRY MACARIO PATRICIO [facility] Organization Address City/State/ZIP Co de Phone Number [facility] [address] [address] * XR CHEST 1VW PORTABLE (2023 8:36 AM BOX OFFICE MANAGER) Anatomical Region Laterality Modality Chest Radiographic Aileen ging 2023 8:50 AM BOX OFFICE MANAGER Narrative 2023 8:51 AM BOX OFFICE MANAGER XR CHEST 1VW PORTABLE INDICATION: R06.02: Shortness of breath R05.2: Subacute cough R09.89: Other specified symptoms and signs involving the circulatory and respiratory systems. COMPARISON: None FINDINGS: There is mild right lower lobe atelectasis or infiltrate left lower lobe atelectasis. No pleural effusion or pneumothorax is present. The heart size is normal. > Interpreting Provider: Sergo Rothman MD on 2023 8:51 AM Procedure Note Sergo Rothman MD - 2023 XR CHEST 1VW PORTABLE INDICATION: R06.02: Shortness of breath R05.2: Subacute cough R09.89: Other specified symptoms and signs involving the circulatory and respiratory systems. COMPARISON: None FINDINGS: There is mild right lower lobe atelectasis or infiltrate left lower lobe atelectasis. No pleural effusion or pneumothorax is present. The heart size is normal. > Interpreting Provider: Sergo Rothman MD on 2023 8:51 AM Miley Sanon MD DIAGNOSTIC IMAGING O RDERABLES * EKG 12-LEAD (2023 8:04 AM BOX OFFICE MANAGER) Ventricular Rate 67 BPM [facility] Atrial Rate 67 BPM [facility] P-R Interval 142 ms [facility] QRS Duration ms 90 ms [facility] Q-T Interval ms 436 ms [facility] QTC Calculation (Bezet) 460 ms [facility] Calculated P [place] 64 degrees [facility]USE Calculated R [place] 42 degrees [facility]USE Calculated T [place] 55 degrees [facility] Interpretation EKG Sinus rhythm with marked sinus arrhythmia Cannot rule out Anterior infarct , age undetermined Abnormal ECG No previous ECGs available Confirmed by AUDREY UMAÑA MD ([id number]) on 06/01/2023 5:31:59 PM [facility] 2023 8:04 AM BOX OFFICE MANAGER 06/01/2023 5:31 PM BOX OFFICE MANAGER Miley Sanon MD ECG ORDERABLES Performing Organization Address City/[facility]/ZIP Co de Phone Number [facility] * SARS-COV-2 (COVID-19) FLU A/B RSV PCR RAPID (2023 7:59 AM BOX OFFICE MANAGER) COVID-19 PCR Not detected Not detected 05/30/20 8:43 AM BOX OFFICE MANAGER [facility] Influenza A PCR Not detected Not detected 2023 8:43 AM BOX OFFICE MANAGER [facility] Influenza B PCR Not detected Not detected 2023 8:43 AM BOX OFFICE MANAGER [facility] RSV PCR Not detected Not detected 2023 8:43 AM BOX OFFICE MANAGER [facility] Microbiology SPECIMEN FROM NASOPHARYNGEAL STRUCTURE / Unknown Collection / Unknown 2023 7:59 AM BOX OFFICE MANAGER 2023 8:03 AM BOX OFFICE MANAGER Narrative [facility] - 2023 8:43 AM BOX OFFICE MANAGER This nucleic acid amplification assay has been authorized by the Food and Drug administration (FDA) under an Emergency Use Authorization (EUA). This test is only authorized for the duration of time the declaration that circumstances exist justifying the authorization of emergency use of in vitro diagnostic tests for detection of SARS-CoV-2 virus and/or diagnosis of COVID-19 infection under section 564(b)(1) of the Act, 21 U.S.C 360bbb-3 (b)(1), unless the authorization is terminated or revoked sooner. Fact Sheets for this EUA assay are available upon request. Alvin Linares MD LAB - MICROBIOLOG Y ORDERABLES [facility] [address] [place] [address] * TROPONIN-I HIGH SENSITIVE BASELINE + 1HR (2023 7:59 AM BOX OFFICE MANAGER) Pathologist [facility] Troponin I High Sensitive <3 <=14 ng/L 2023 8:37 AM BOX OFFICE MANAGER [facility] Blood BLOOD SPECIMEN / Unknown Venipuncture / Unknown 2023 7:59 AM BOX OFFICE MANAGER 2023 8:03 AM BOX OFFICE MANAGER Miley Sanon MD LAB - CHEMISTRY ORDE PATRICIO Performing Organization Address [facility] Co de Phone Number [facility] [address] [place], [place] [id number] * PT-INR (2023 7:59 AM BOX OFFICE MANAGER) Pathologist [facility] PT 13.2 12.1 - 14.8 sec 2023 8:16 AM [facility] INR 1.0 0.9 - 1.1 2023 8:16 AM [facility] Blood BLOOD SPECIMEN / Unknown Venipuncture / Unknown 2023 7:59 AM BOX OFFICE MANAGER 2023 8:03 AM BOX OFFICE MANAGER Narrative [facility] - 2023 8:16 AM BOX OFFICE MANAGER Conventional Warfarin Anticoagulant Therapy: INR Reference Range: 2.0-3.0 Intensive Warfarin Anticoagulant Therapy: INR Reference Range: 2.5-3.5 Miley Sanon MD LAB - COAGULATION OR DERABLES Performing Organization Address [facility] Co de Phone Number [facility] [address] [place], [place] [phone] * (ABNORMAL) CBC W AUTO DIFFERENTIAL (2023 7:59 AM BOX OFFICE MANAGER) Pathologist [facility] WBC 5.5 4.4 - 10.7 x10E9/L 2023 8:06 AM BOX OFFICE MANAGER [facility] WBC Corrected 2023 8:06 AM [facility] RBC 4.42 3.80 - 5.20 x10E12/L 2023 8:06 AM [facility] Hemoglobin 14.3 12.0 - 15.6 gm/dL 2023 8:06 AM [facility] Hematocrit 42.4 35.9 - 45.5 % 2023 8:06 AM [facility] MCV 95.9 80.7 - 98.3 fl 2023 8:06 AM [facility] MCH 32.4 26.7 - 34.0 pg 2023 8:06 AM [facility] MCHC 33.7 30.8 - 35.9 gm/dL 2023 8:06 AM [facility] Platelet Count 180 153 - 416 x10E9/L 2023 8:06 AM [facility] RDW-CV 11.8(L) 12.1 - 14.9 % 2023 8:06 AM [facility] MPV 10.8 9.4 - 12.9 fl 2023 8:06 AM [facility] Neutrophils % 59.3 44.0 - 73.0 % 2023 8:06 AM [facility] Lymphocytes % 27.7 20.0 - 43.0 % 2023 8:06 AM [facility] Monocytes % 9.2 5.0 - 13.0 % 2023 8:06 AM [facility] Eosinophils % 3.1 0.0 - 6.0 % 2023 8:06 AM [facility] Basophils % 0.5 0.0 - 2.0 % 2023 8:06 AM [facility] Immature Granulocytes 0.2 0 - 1 % 2023 8:06 AM [facility] Neutrophil Absolute 3.28 2.01 - 7.14 x10E9/L 2023 8:06 AM [facility] Lymphocytes Absolute 1.53 1.07 - 3.94 x10E9/L 2023 8:06 AM [facility] Monocytes Absolute 0.51 0.26 - 1.07 x10E9/L 2023 8:06 AM [facility] Eosinophils Absolute 0.17 0 - 0.47 x10E9/L 2023 8:06 AM [facility] Basophils Absolute 0.03 0 - 0.08 x10E9/L 2023 8:06 AM [facility] Immature Granulocytes Absolute 0.01 0.00 - 0.06 x10E9/L 2023 8:06 AM [facility] nRBC Auto 0 /100 WBC 2023 8:06 AM [facility] Blood BLOOD SPECIMEN / Unknown Venipuncture / Unknown 2023 7:59 AM BOX OFFICE MANAGER 2023 8:03 AM [facility] Miley Sanon MD LAB - HEMATOLOGY ORD ERABLES [facility] [address] [place] [address] * (ABNORMAL) COMPREHENSIVE METABOLIC PANEL (2023 7:59 AM [facility]) Glucose 110(H) 70 - 105 mg/dL 2023 8:32 AM [facility] Sodium 141 136 - 145 mmol/L 2023 8:32 AM [facility] Potassium 4.1 3.5 - 5.1 mmol/L 2023 8:32 AM [facility] Chloride 106 98 - 107 mmol/L 2023 8:32 AM [facility] CO2 26 22 - 29 mmol/L 2023 8:32 AM [facility] Calcium 9.1 8.4 - 10.4 mg/dL 2023 8:32 AM [facility] Anion Gap 9 6 - 16 mmol/L 2023 8:32 AM [facility] BUN 10 7 - 26 mg/dL 2023 8:32 AM [facility] Creatinine 0.84 0.57 - 1.11 mg/dL 2023 8:32 AM [facility] Alkaline Phosphatase 88 40 - 150 U/L 2023 8:32 AM [facility] ALT 54 0 - 55 U/L 2023 8:32 AM [facility] AST 33 5 - 34 U/L 2023 8:32 AM [facility] Protein Total 6.7 6.4 - 8.3 gm/dL 2023 8:32 AM BOX OFFICE MANAGER [facility] Albumin 3.7 3.4 - 5.0 gm/dL 2023 8:32 AM BOX OFFICE MANAGER [facility] Bilirubin Total 0.4 0.2 - 1.2 mg/dL 2023 8:32 AM BOX OFFICE MANAGER [facility] eGFR by CKD-EPI 76(L) >=90 mL/min/1.7 3 m2 2023 8:32 AM BOX OFFICE MANAGER [facility] Blood BLOOD SPECIMEN / Unknown Venipuncture / Unknown 2023 7:59 AM BOX OFFICE MANAGER 2023 8:03 AM BOX OFFICE MANAGER Miley Sanon MD LAB - CHEMISTRY ORDRed CURRY [facility] [address] [address] * MAGNESIUM BLOOD (2023 7:59 AM BOX OFFICE MANAGER) Magnesium 1.9 1.6 - 2.6 mg/dL 2023 8:32 AM [facility] Blood BLOOD SPECIMEN / Unknown Venipuncture / Unknown 2023 7:59 AM BOX OFFICE MANAGER 2023 8:03 AM BOX OFFICE MANAGER Miley Sanon MD LAB - CHEMISTRY MACARIO CUR[place] [facility] [address] [address]
== END 2024-08-23 09:04 | disposition home or self-care (01) ==
PROVIDERS: PCP Nurse Practitioner Adult Health; Visit Provider Nurse Practitioner Adult Health
DX: M25.552 Pain in left hip (principal); M54.50 Low back pain, unspecified
CPT/HCPCS: 72100; 73502

== ENCOUNTER 2024-09-19 12:37 | Outpatient (CLI) | payer OTHER, SELFPAY ==
--- NOTE | ~2024-09-19 | MR_ITS ---
MRI of the lumbar spine Clinical History: Urinary incontinence Technique: Axial T2-weighted images, and sagittal T1-weighted, T2-weighted, and T2 fat-sat images wer e acquired. Findings: There is no fracture or subluxation of the lumbar spine. Vertebral bodies maintain normal h eight. No bone marrow signal abnormality seen. At L1-L2, there is moderate to advanced facet arthropathy. No central canal stenosis or neural forami nal narrowing. No disc bulge or herniation. At L2-L3, there is no disc bulge or herniation. There is moderate facet arthropathy. No central canal stenosis or neural foraminal narrowing. At L3-L4, there is no significant disc bulge or herniation. There is mild to moderate facet arthropat hy. No central canal stenosis or neural foraminal narrowing. At L4-L5, there is advanced degenerative disc narrowing. There is minimal disc bulge with moderate fa cet arthropathy. No central canal stenosis. There is minimal right neural foraminal narrowing. Left n eural foramen preserved. At L5-S1, there is no disc bulge or herniation. There is advanced facet arthropathy. No central canal stenosis or definite neural foraminal narrowing. Paravertebral soft tissues are unremarkable. Impression: Mild degenerative spondylosis overall, as above. Reviewed, dictated and finalized at location . Impression: Mild degenerative spondylosis overall, as above.
--- OUTSIDE RECORDS SUMMARY | 2024-09-19 13:53 | XMS_ITS | Clinical Summary ---
Author Organization [facility] Address [address] [place] [address] Care Team Providers Care Contract Administration Coordinator Name Role Phone Sandro Reid MD Primary Care Provider [phone] Allergies No known active allergies Active Problems Problem Noted Date Diagnosed Date Depression 04/02/2014 Overview (10/08/2016): Depression Malignant neoplasm of urinary bladder 04/02/2014 Overview (10/08/2016): Bladder cancer Encounters Date Type Department Care Team Description 09/18/2024 8:46 AM CDT - 09/18/2024 11:59 PM CDT Hospital Encounter [address] [address] Encounter for screening mammogram for malignant neoplasm of breast Discharge Disposition: Discharge to home or self care 09/18/2024 8:43 AM CDT - 09/18/2024 11:59 PM CDT Hospital Encounter [address] [address] Personal history of nicotine dependence Discharge Disposition: Discharge to home or self care 09/15/[address] [address] Dory Qiu RN from Last 3 Months Surgical History Surgery Date Site/Laterality Comments APPENDECTOMY Appendectomy OTHER SURGICAL HISTORY D&C Family History Medical History Relation Name Comments Lymphoma Father Mitral valve prolapse Father Multip le myeloma; Liver cancer Mother Cancer, liver; Lung cancer Paternal Grandfather Relation Name Status Comments Father Mother Paternal Grandfather Social History Tobacco Use Types Packs/Day Years Used Date Smoking Tobacco: Heavy Smoker Comments:Smoking History Pac ks/day: 0.5 Packs Alcohol Use Standard Drinks/Week Comments No 0 (1 standard drink = 0.6 oz pur e alcohol) Comments No Sex and Gender Information Value Date Recorded Sex Assigned at Not on file Legal Sex Female 10:21 AM NAVIGATING OFFICER Gender Identity Not on file Sexual Orientation Not on file Obstetrics History Para Term AB IAB SAB Ectopic Multiple Livin g Live Births 4 2 2 Date Outcome GA Total Labor Labor/2nd/3rd Weight Sex Type Anes PTL Lorraine A1 A5 Name Clin Term Term Last Filed Vital Signs Vital Sign Reading Time Taken Comments Blood Pressure 108/60 04/02/2014 2:53 PM CDT Pulse 76 04/02/2014 2:53 PM CDT Temperature - - Respiratory Rate - - Oxygen Saturation 94% 04/02/2014 2:53 PM CDT Inhaled Oxygen Concentration - - Weight 73.9 kg (163 lb) 09/18/2024 9:35 AM CDT Height 172.7 cm (5' 8 ) 09/18/2024 9:35 AM CDT Body Mass Index 24.78 09/18/2024 9:35 AM CDT Plan of Treatment Health Maintenance Due Date Last Done Comments Breast Cancer Screening-Mammogram 1955 Colon Cancer Screening-Colonoscopy 1955 Depression Screening 1955 Fall Risk Assessment 1955 Hepatitis C Screening 1955 Osteoporosis Screening-Bone Density Scan 1955 DTaP/Tdap/Td Vaccine (1 - Tdap) 1966 Hepatitis B Screening 1973 Pneumococcal vaccine 65+ (1 of 2 - PCV) 1974 Zoster Vaccine (1 of 2) 2005 Well Visit 65+ 2020 Covid-19 Vaccine ( season) 2024, 01/27/2021 Influenza Vaccine (#1) 2024 [place] [address] [employer] ADVANTAGE CHOICE PPO Care Teams Contract Administration Coordinator Relationship Specialty Start Date End Date Sandro Reid MD [address] [place] [address] PCP - General Family Practice 09/18/24
--- OUTSIDE RECORDS SUMMARY | 2024-09-19 13:53 | XMS_ITS | Clinical Summary ---
Author Organization [facility] Address [address], [facility] [address] [place] [address] Phone Care Team Providers Care Rope Maker Name Role Phone Darren Pan MD Primary Care Provider [phone] João Pedraza MD Unavailable Unavailable Allergies Active [...] age to complete [place] [address] [facility] Care Teams Rope Maker Relationship Specialty Start Date End Date Darren Pan MD [address] [place] [address] PCP - General Internal Medicine 02/07/16 João Pedraza MD [address] [place] [address] Consulting Physician Urology 02/07/16
--- OUTSIDE RECORDS SUMMARY | 2024-09-19 13:53 | XMS_ITS | Encounter Summary ---
Author Organization [facility] Address [address] [place] [address] Care Team Providers Care Misdraw Hand Name Role Phone Sandro Reid MD Primary Care Provider [phone] Reason for Referral * MRI/CAT/PET Scan (Routine) - Closed Specialty Diagnoses / Procedures Referred By Peterac t Referred To Contact Radiology Diagnoses Personal history of nicotine dependence Procedures CT Lung Cancer Screening Celsa Pat NP [address] [place] [address] [place] [address] Phone: tel: fax: [address] [phone] Referral ID Status Reason Start Date Expiration Date Visits Re quested Visits Authorized [id number] Closed 07/18/2024 08/17/2025 1 1 Reason for Visit * MRI/CAT/PET Scan (Routine) - Closed Specialty Diagnoses / Procedures Referred By Contac t Referred To Contact Radiology Diagnoses Personal history of nicotine dependence Procedures CT Lung Cancer Screening Celsa Pat NP [address] [place] [address] [place] [address] Phone: tel: fax: [address] [phone] Referral ID Status Reason Start Date Expiration Date Visits Re quested Visits Authorized [id number] Closed 07/18/2024 08/17/2025 1 1 Encounter Details Date Type Department Care Team (Latest Contact Info) Description 09/18/2024 8:43 AM CDT - 09/18/2024 11:59 PM CDT Hospital Encounter [facility] [address] [place] [address] Personal history of nicotine dependence Discharge Disposition: Discharge to home or self care Social History Tobacco Use Types Packs/Day Years Used Date Smoking Tobacco: Heavy Smoker Comments:Smoking History Pac ks/day: 0.5 Packs Alcohol Use Standard Drinks/Week Comments No 0 (1 standard drink = 0.6 oz pur e alcohol) Comments No Sex and Gender Information Value Date Recorded Sex Assigned at Not on file Legal Sex Female 10:21 AM HAND PICKER Gender Identity Not on file Sexual Orientation Not on file documented as of this encounter Last Filed Vital Signs Vital Sign Reading Time Taken Comments Blood Pressure - - Pulse - - Temperature - - Respiratory Rate - - Oxygen Saturation - - Inhaled Oxygen Concentration - - Weight 73.9 kg (163 lb) 09/18/2024 9:35 AM CDT Height 172.7 cm (5' 8 ) 09/18/2024 9:35 AM CDT Body Mass Index 24.78 09/18/2024 9:35 AM CDT documented in this encounter Discharge Disposition Disposition Code Departure Means Destination Discharge to home or self care documented in this encounter Plan of Treatment Pending Results Name Type Priority Associated Diagnoses Date /Time CT Lung Cancer Screening Imaging Schedule Routine, Read Routine (OP Routine) Personal history of nicotine dependence 09/18/2024 9:26 AM CDT Scheduled Orders Name Type Priority Associated Diagnoses Orde r Schedule CT Lung Cancer Screening Imaging Schedule Routine, Read Routine (OP Routine) Personal history of nicotine dependence Once for 1 Occurrences starting 09/18/2024 until 09/18/2024 documented as of this encounter Visit Diagnoses Diagnosis Personal history of nicotine dependence documented in this encounter Care Teams Misdraw Hand Relationship Specialty Start Date End Date Sandro Reid MD [address] [place] [address] PCP - General Family Practice 09/18/24 documented as of this encounter
--- OUTSIDE RECORDS SUMMARY | 2024-09-19 13:53 | XMS_ITS | Encounter Summary ---
Author Organization [facility] Healthcare Address [address] [place] [address] Care Team Providers Care Supply Chain Assistant Name Role Phone Sandro Reid MD Primary Care Provider [phone] Reason for Referral * Diagnostic Imaging (Routine) - Pending Review Specialty Diagnoses / Procedures Referred By Ronnie brady Referred To Contact Diagnoses Encounter for screening mammogram for malignant neoplasm of breast Procedures Screening Mammogram Bilateral W Celsa Ashford NP [address] [place] [address] [place] [address] Phone: tel: fax: [address] [phone] Referral ID Status Reason Start Date Expiration Date V isits Requested Visits Authorized [id number] Pending Review 07/18/2024 08/17/2025 1 1 Reason for Visit * Diagnostic Imaging (Routine) - Pending Review Specialty Diagnoses / Procedures Referred By Ronnie brady Referred To Contact Diagnoses Encounter for screening mammogram for malignant neoplasm of breast Procedures Screening Mammogram Bilateral W Celsa Ashford NP [address] [place] [address] [place] [address] Phone: tel: fax: [address] [phone] Referral ID Status Reason Start Date Expiration Date V isits Requested Visits Authorized [id number] Pending Review 07/18/2024 08/17/2025 1 1 Encounter Details Date Type Department Care Team (Latest Contact Info) Description 09/18/2024 8:46 AM CDT - 09/18/2024 11:59 PM CDT Hospital Encounter [facility] [address] [place] [address] Encounter for screening mammogram for malignant neoplasm [...] on file Legal Sex Female 10:21 AM CASING FLUSHER Gender Identity Not on file Sexual Orientation Not on file documented as of this encounter Discharge Disposition Disposition Code Departure Means Destination Discharge to home or self care documented in this encounter Plan of Treatment Pending Results Name Type Priority Associated Diagnoses Date /Time Screening Mammogram Bilateral W [facility]igi Imaging Schedule Routine, Read Routine (OP Routine) Encounter for screening mammogram for malignant neoplasm of breast 09/18/2024 9:00 AM CDT Scheduled Orders Name Type Priority Associated Diagnoses Orde r Schedule Screening Mammogram Bilateral W [facility] Imaging Schedule Routine, Read Routine (OP Routine) Encounter for screening mammogram for malignant neoplasm of breast Once for 1 Occurrences starting 09/18/2024 until 09/18/2024 documented as of this encounter Visit Diagnoses Diagnosis Encounter for screening mammogram for malignant neoplasm of breast documented in this encounter Care Teams Supply Chain Assistant Relationship Specialty Start Date End Date Sandro Reid MD [address] [place] [address] PCP - General Family Practice 09/18/24 documented as of this encounter
--- OUTSIDE RECORDS SUMMARY | 2024-09-19 13:53 | XMS_ITS | Clinical Summary ---
Author Organization [facility] Address [address] [place] [address] Care Team Providers Care Infection Prevention Coordinator Name Role Phone Unavailable Primary Care Provider Unavailabl e Source Comments [facility],non-owned Affiliates and Associated Physician Practices is amultiple site organization consisting of ambulatory clinics and hospital sitesin [place], [place], [place] and [place]. This disclosure is being madepursuant to the Care Everywhere program and may not contain all information available regarding this patient. Last updated 18.[facility] Allergies No known active allergies Medications * [...] Comments Blood Pressure 185/99 2023 9:03 AM PRECISION ASSEMBLY INSPECTOR Pulse 58 2023 9:08 AM PRECISION ASSEMBLY INSPECTOR Temperature 36.4 C (97.6 F) 2023 3:43 AM PRECISION ASSEMBLY INSPECTOR Respiratory Rate 14 2023 9:08 AM PRECISION ASSEMBLY INSPECTOR Oxygen Saturation 95% 2023 9:08 AM PRECISION ASSEMBLY INSPECTOR Inhaled Oxygen Concentration - - Weight 83.9 kg (185 lb) 2023 9:03 AM PRECISION ASSEMBLY INSPECTOR Height 170.2 cm (5' 7 ) 2023 9:03 AM PRECISION ASSEMBLY INSPECTOR Body Mass Index 28.98 2023 9:03 AM PRECISION ASSEMBLY INSPECTOR Plan of Treatment Health Maintenance Due Date [...] to complete this topic MENINGOCOCCAL (Group B) VACC INE SHARED DECISION-MAKING Aged Out No longer eligibl e based on patient's age to complete this topic MENINGOCOCCAL GROUPS A/C/Y/W VACCINE Aged Out No longer eligible b ased on patient's age to [place] [address]
--- OUTSIDE RECORDS SUMMARY | 2024-09-19 13:53 | XMS_ITS | Referral Summary ---
Author Organization [facility] Address [address] [place] [address] Care Team Providers Care Floor Associate Name Role Phone Sandro Reid MD Primary Care Provider +[phone] Encounters Date Type Department Care Team Description 09/18/2024 8:43 AM CDT - 09/18/2024 11:59 PM CDT Hospital Encounter [address] [address] Personal history of nicotine dependence Discharge Disposition: Discharge to home or self care 09/18/2024 8:46 AM CDT - 09/18/2024 11:59 PM CDT Hospital Encounter [address] [address] Encounter for screening mammogram for malignant neoplasm of breast Discharge Disposition: Discharge to home or self care 09/15/[address] [address] Dory Qiu RN from Last 3 Months Allergies No known active allergies Active Problems Problem Noted Date Diagnosed Date Depression 04/02/2014 Overview (10/08/2016): Depression Malignant neoplasm of urinary bladder 04/02/2014 Overview (10/08/2016): Bladder cancer Social History Tobacco Use Types Packs/Day Years Used Date Smoking Tobacco: Heavy Smoker Comments:Smoking History Pac ks/day: 0.5 Packs Alcohol Use Standard Drinks/Week Comments No 0 (1 standard drink = 0.6 oz pur e alcohol) Comments No Sex and Gender Information Value Date Recorded Sex Assigned at Not on file 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
--- OUTSIDE RECORDS SUMMARY | 2024-09-19 13:53 | XMS_ITS ---
Author Organization [facility] Address 1 [place] [address] Care Team Providers Care Sales Effectiveness Manager Name Role Phone Sandro Reid MD Primary Care Provider +1 [phone] Active Problems Problem Noted Date Diagnosed Date Depression 04/02/2014 Overview (10/08/2016): Depression Malignant neoplasm of urinary bladder 04/02/2014 Overview (10/08/2016): Bladder cancer Current Treatment and Therapy Plans No current plan information found. Past Treatment and Therapy Plans No past plan information found. Lifetime Dose Tracking * Chemical Lifetime Dose Automatic Entry Manual Entr y DLP 65 mGycm 65 mGycm 0 mGycm CTDIvol 2.2 mGy 2.2 mGy 0 mGy
== END 2024-09-19 12:38 | disposition home or self-care (01) ==
PROVIDERS: PCP Nurse Practitioner Adult Health; Visit Provider Nurse Practitioner Adult Health
DX: R32 Unspecified urinary incontinence (principal); M47.26 Other spondylosis with radiculopathy, lumbar region
CPT/HCPCS: 72148

== ENCOUNTER 2024-11-01 11:15 | Outpatient (CLI) | payer OTHER, SELFPAY ==
--- NOTE | ~2024-11-01 | XR_ITS ---
Left Knee Technique: AP, lateral, and sunrise views were obtained. Clinical History: Pain Findings: No fracture or dislocation is seen. Osseous alignment is anatomic. There is mild degenerati ve change, predominantly the medial joint line.. No joint effusion is seen. Impression: Mild degenerative change, as above. Reviewed, dictated and finalized at location . Impression: Mild degenerative change, as above.
--- NOTE | ~2024-11-01 | XR_ITS ---
Right Knee Technique: AP, lateral, and sunrise views were obtained. Clinical History: Pain Findings: No fracture or dislocation is seen. Osseous alignment is anatomic. There is mild degenerati ve change at the medial joint line. Chondrocalcinosis of the menisci noted. No joint effusion is seen . Impression: Mild degenerative change at the medial joint line. Chondrocalcinosis of menisci. Reviewed, dictated and finalized at location M. Impression: Mild degenerative change at the medial joint line. Chondrocalcinosis of menisci.
--- OUTSIDE RECORDS SUMMARY | 2024-11-01 12:45 | XMS_ITS | Clinical Summary ---
Author Organization [facility] Address [address] [place] [address] Care Team Providers Care Epic Willow Analyst Name Role Phone Sandro Reid MD Primary Care Provider [phone] Allergies No known active allergies Active Problems Problem Noted Date Diagnosed Date Depression 04/02/2014 Overview (10/08/2016): Depression Malignant neoplasm of urinary bladder 04/02/2014 Overview (10/08/2016): Bladder cancer Encounters Date Type Department Care Team Description 09/18/2024 8:46 AM CDT - 09/18/2024 11:59 PM CDT Hospital Encounter [address] [address] Encounter for screening mammogram for malignant neoplasm of breast Discharge Disposition: Discharge to home or self care 09/18/2024 8:43 AM CDT - 09/18/2024 11:59 PM CDT Hospital Encounter [address] [address] Personal history of nicotine dependence Discharge Disposition: Discharge to home or self care 09/15/[address] [address] Dory Qiu RN from Last 3 Months [...] on file 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 Gender Identity Not on file Sexual Orientation [...] Health Maintenance Due Date Last Done Comments Colon Cancer Screening-Colonoscopy 1955 Depression Screening 1955 Fall Risk Assessment 1955 Hepatitis C Screening 1955 Osteoporosis Screening-Bone Density Scan 1955 DTaP/Tdap/Td Vaccine (1 - Tdap) 1966 Hepatitis B Screening 1973 Pneumococcal vaccine 65+ (1 of 2 - PCV) 1974 Zoster Vaccine (1 of 2) 2005 Well Visit 65+ 2020 Covid-19 Vaccine (3 - season) 2024, 01/27/2021 Influenza Vaccine (Season Ended) 2025 Breast Cancer Screening-Mammogram 09/18/2025 025 Lung Cancer Screening 09/19/2025 09/18/2024 Procedures Procedure Name Priority Date/Time Associated Diagnosis Comments CT LUNG CANCER SCREENING Schedule Routine, Read Routine (OP Routine) 09/18/2024 9:26 AM CDT Personal history of nicotine dependence SCREENING MAMMOGRAM BILATERAL W LINH Schedule Routine, Read Routine (OP Routine) 09/18/2024 9:00 AM CDT Encounter for screening mammogram for malignant neoplasm of breast from Last 3 Months Results * CT Lung Cancer Screening (09/18/2024 9:26 AM CDT) Anatomical Region Laterality Modality Chest N/A Computed Tomogra phy 09/20/2024 8:01 AM CDT Narrative 09/20/2024 8:03 AM CDT EXAM DESCRIPTION: CT LUNG CANCER SCREENING REASON FOR STUDY: Screening CT of the chest in a former smoker with a 45 pack year smoking history. Additional history: None. TECHNIQUE: Low dose CT scan of the chest was performed without intravenous contrast using helical scanning technique. The exam extends from the lung apices through the lung bases. Automatic exposure control was used as a dose optimization technique. NOTE: This study was performed for the specific purposes of lung cancer screening and is not an alternative to diagnostic chest CT. RADIATION DOSE: CT dose index volume (CTDIvol) = 2.20 mGy COMPARISON: None FINDINGS: SMOKING RELATED LUNG DISEASE: Mild centrilobular pulmonary emphysema. LUNG NODULES: No suspicious pulmonary nodules. CORONARY ARTERY CALCIFICATION: None visualized. OTHER: Curvilinear bands of atelectasis or scarring in both lungs. Normal heart size. No mediastinal or hilar lymph node enlargement by size criteria. No acute findings in the visualized upper abdomen given low-dose technique. No acute skeletal abnormality. IMPRESSION: No suspicious pulmonary nodules. Mild pulmonary emphysema. Lung-RADS category 1: Negative. Recommendation: Low dose Screening CT of chest in 12 months. THIS IS AN ELECTRONICALLY VERIFIED FINAL REPORT 09/20/2024 8:03 AM - Electronically signed by Terry Pereyra M.D. JR: Report ID: [id number] Reading Location: [id number] Procedure Note Terry Pereyra MD - 09/20/2024 EXAM DESCRIPTION: CT LUNG CANCER SCREENING REASON FOR STUDY: Screening CT of the chest in a former smoker with a45 pack year smoking history. Additional history: None. TECHNIQUE: Low dose CT scan of the chest was performed without intravenous contrast using helical scanning technique. The exam extends from the lung apices through the lung bases. Automatic exposure control was used as adose optimization technique. NOTE: This study was performed for the specific purposes of lung cancer screening and is not an alternative to diagnostic chest CT. RADIATION DOSE: CT dose index volume (CTDIvol) = 2.20 mGy COMPARISON: None FINDINGS: SMOKING RELATED LUNG DISEASE: Mild centrilobular pulmonary emphysema. LUNG NODULES: No suspicious pulmonary nodules. CORONARY ARTERY CALCIFICATION: None visualized. OTHER: Curvilinear bands of atelectasis or scarring in both lungs.Normal heart size. No mediastinal or hilar lymph node enlargement by sizecriteria. No acute findings in the visualized upper abdomen given low-dosetechnique. No acute skeletal abnormality. IMPRESSION: No suspicious pulmonary nodules. Mild pulmonary emphysema. Lung-RADS category 1: Negative. Recommendation: Low dose Screening CT of chest in 12 months. THIS IS AN ELECTRONICALLY VERIFIED FINAL REPORT 09/20/2024 8:03 AM - Electronically signed by Terry Pereyra M.D. JR: Report ID: [id number] Reading Location: [place] [address] Celsa Bi VEL[address] IM [address] PROCEDURES Final Result * Screening Mammogram Bilateral W Linh (09/18/2024 9:00 AM CDT) Anatomical Region Laterality Modality Breast Bilateral Mammography 10/03/2024 8:14 AM CDT Impressions 10/03/2024 8:14 AM CDT No evidence of malignancy in either breast. FINAL ASSESSMENT: BI-RADS Category 1: Negative. RECOMMENDATION: Recommend return for annual screening mammogram in 12 months. Electronically signed by: Sergo Damon M.D. Narrative 10/03/2024 8:14 AM CDT EXAMINATION: BILATERAL SCREENING MAMMOGRAM COMPARISON: Outside mammograms dated 11/24/2019, 04/18/2018, and 08/03/2014 TECHNIQUE: Full-field 2D and digital breast tomosynthesis (DBT) images were obtained. CAD was utilized. BREAST PARENCHYMAL COMPOSITION: There are scattered areas of fibroglandular density. FINDINGS: The small possible mass of concern in the anterior medial left breast detected on prior mammogram from November 2019 is not present on this mammogram, evidence of a benign etiology. No suspicious masses, suspicious calcifications, or other suspicious findings are identified in either breast. There has been no suspicious interval change. us Celsa Pat NP IMG MAMMO PROCEDURES Final Res ult from Last 3 Months Insurance [employer] PPO Care Teams Epic Willow Analyst Relationship Specialty Start Date End Date Sandro Reid MD [address] [place] [address] PCP - General Family Practice 09/18/24
--- OUTSIDE RECORDS SUMMARY | 2024-11-01 12:45 | XMS_ITS | Clinical Summary ---
Author Organization [facility] Address [address] [place] [address] Care Team Providers Care Infant And Toddler Teacher Name Role Phone Unavailable Primary Care Provider Unavailabl e Source Comments [facility],non-owned Affiliates and Associated Physician Practices is amultiple site organization consisting of ambulatory clinics and hospital sitesin [place], [place], [place] and [place]. This disclosure is being madepursuant to the Care Everywhere program and may not contain all information available regarding this patient. Last updated 18.[facility] Allergies No known active allergies Medications * Be aware that medications may not be up to date on this document. Alwaysverify current medications with the patient. azithromycin (Zithromax) 250 MG tablet Take 2 tablets on day 1, then take 1 tablet daily for 4 days 6 tablet 2023 Active methylPREDNISol one (Medrol Dosepak) 4 MG tablet Take by mouth as directed <!--EPICS-->F ollow package insert dosing for six day supply.<!--EP ICE--> 21 tablet 2023 Active albuterol HFA (ProAir HFA) 108 (90 Base) MCG/ACT inhaler Inhale 2 (two) puffs by mouth every 4 hours as needed 8.5 g 2023 Active Social History Tobacco Use Types Packs/Day Years Used Date Smoking Tobacco: Never Assessed Comments Unknown Sex and Gender Information Value Date Recorded Sex Assigned at Not on file Legal Sex Female 3:42 AM CLERK ENTRY LEVEL Gender Identity Not on file Sexual Orientation Not on file Last Filed Vital Signs Vital Sign Reading Time Taken Comments Blood Pressure 185/99 2023 9:03 AM CLERK ENTRY LEVEL Pulse 58 2023 9:08 AM CLERK ENTRY LEVEL Temperature 36.4 C (97.6 F) 2023 3:43 AM CLERK ENTRY LEVEL Respiratory Rate 14 2023 9:08 AM CLERK ENTRY LEVEL Oxygen Saturation 95% 2023 9:08 AM CLERK ENTRY LEVEL Inhaled Oxygen Concentration - - Weight 83.9 kg (185 lb) 2023 9:03 AM CLERK ENTRY LEVEL Height 170.2 cm (5' 7 ) 2023 9:03 AM CLERK ENTRY LEVEL Body Mass Index 28.98 2023 9:03 AM CLERK ENTRY LEVEL Plan of Treatment Health Maintenance Due Date [...] (2 - 2023-2 5 season) 2024 01/27/2021 DEPRESSION SCREENING 07/05/2024 MEDICARE AWV CALENDAR YEAR 2024 INFLUENZA VACCINE (Season Ended) 2025 Respiratory Syncytial Virus (RSV) Vaccine Pt: or [...] age to complete this [place] [address] MEDICARE [facility] MEDICAID - [place]
--- OUTSIDE RECORDS SUMMARY | 2024-11-01 12:45 | XMS_ITS ---
Author Organization [facility] Address 1 [place] [address] Care Team Providers Care Therapist Name Role Phone Sandro Reid MD Primary Care Provider [phone] Active Problems Problem Noted Date Diagnosed Date [...]
--- OUTSIDE RECORDS SUMMARY | 2024-11-01 12:45 | XMS_ITS | Referral Summary ---
Author Organization [facility] Address 1 [place] [address] Care Team Providers Care Dynamite Packing Machine Feeder Name Role Phone Sandro Reid MD Primary Care Provider [phone] Encounters Date Type Department Care Team Description 09/18/2024 8:43 AM CDT - 09/18/2024 11:59 PM CDT Hospital Encounter [address] [address] Personal history of nicotine dependence Discharge Disposition: Discharge to home or self care 09/18/2024 8:46 AM CDT - 09/18/2024 11:59 PM CDT Hospital Encounter [address] [address] Encounter for screening mammogram for malignant neoplasm of breast Discharge Disposition: Discharge to home or self care 09/15/[address] [address] Dory Qiu RN from Last 3 Months [...] on file 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 JR: Report ID: [id number] Reading Location: [id number] Celsa Pat NP IMG CT PROCEDURES Final Result * Screening Mammogram [...] There has been no suspicious interval change. Celsa Pat NP IMG MAMMO PROCEDURES Final Res ult from Last 3 [place] [address] [employer] PPO Care Teams Dynamite Packing Machine Feeder Relationship Specialty Start Date End Date Sandro Reid MD [address] [place], [place] [id number] PCP - General Family Practice 09/18/24
--- OUTSIDE RECORDS SUMMARY | 2024-11-01 12:46 | XMS_ITS | Clinical Summary ---
Author Organization [facility] Address [address], [facility] [address] [place] [address] Phone Care Team Providers Care Sand Filler Name Role Phone Darren Pan MD Primary Care Provider [phone] João Pedraza MD Unavailable Unavailable Allergies Active [...] Mrna, Lnp-s, Pf, 30 Mcg/0.3 Ml Dose (vEelio campos) 01/27/2021 Family History Medical History Relation [...] age to complete this topic Insurance [address] Care Teams Sand Filler Relationship Specialty Start Date End Date Darren Pan MD PCP - General Internal Medicine 02/07/16 João Pedraza MD Consulting Physician Urology 02/07/16
[2024-11-01 21:30] LABS: Alanine Aminotransferase 46 U/L (6-35); Albumin Level 4.1 g/dL (3.5-5.1); Alkaline Phosphatase 91 U/L (38-126); Anion Gap 7 mmol/L (4-12); Aspartate Amino Transferase 52 U/L (14-36); Bilirubin,Total 0.5 mg/dL (0.2-1.3); Blood Urea Nitrogen 15 mg/dL (7-17); Calcium 9.1 mg/dL (8.4-10.2); Carbon Dioxide 27 mmol/L (22-30); Chloride 103 mmol/L (98-107); Cholesterol 188 mg/dL (0-200); Estimated Glomerular Filt Rate > 60; Glucose 92 mg/dL (65-110); HDL Direct 52 mg/dL; Magnesium 1.9 mg/dL (1.6-2.3); Potassium 4.3 mmol/L (3.4-5.0); Sodium 137 mmol/L (137-145); Triglycerides 76 mg/dL (<150)
[2024-11-01 21:41] LABS: LDL Cholesterol Direct 96 mg/dL
== END 2024-11-01 11:16 | disposition home or self-care (01) ==
LOC: ANHBWCLAB 11:16
PROVIDERS: PCP Nurse Practitioner Adult Health; Visit Provider Nurse Practitioner Adult Health
DX: E78.5 Hyperlipidemia, unspecified (principal); R25.2 Cramp and spasm; M17.0 Bilateral primary osteoarthritis of knee
CPT/HCPCS: 36415; 73562; 80053; 80061; 83735

== ENCOUNTER 2024-11-01 13:27 | Outpatient (CLI) | payer OTHER, SELFPAY ==
--- NOTE | ~2024-11-01 | US_ITS ---
EXAMINATION: US venous doppler [facility] DATE: 11/01/2024 14:16 INDICATION: Left lower limb pain TECHNIQUE: Grayscale ultrasound images without and with compression and Doppler ultrasound images of the left lower extremity veins were obtained. COMPARISON: None. FINDINGS: The visualized portions of left common femoral vein, profunda (deep) femoral vein, femoral vein, popl iteal vein, peroneal veins, posterior tibial veins, gastrocnemius vein and greater saphenous vein out flow are patent. IMPRESSION: 1. No deep venous thrombosis in the left lower limb. Reviewed, dictated and finalized at location B.
--- OUTSIDE RECORDS SUMMARY | 2024-11-01 14:20 | XMS_ITS | Clinical Summary ---
Author Organization [facility] Address [address] [place] [address] Care Team Providers Care Biology Department Chair Name Role Phone Unavailable Primary Care Provider Unavailabl e Source Comments [facility],non-owned Affiliates and Associated Physician Practices is amultiple site organization consisting of ambulatory clinics and hospital sitesin [place], [place], [place] and [place]. This disclosure is being madepursuant to the Care Everywhere program and may not contain all information available regarding this patient. 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 Gender Identity Not on file Sexual Orientation Not on file Last Filed Vital Signs Vital Sign Reading Time Taken Comments Blood Pressure 185/99 2023 9:03 AM PATIENT TRANSITION SPECIALIST Pulse 58 2023 9:08 AM PATIENT TRANSITION SPECIALIST Temperature 36.4 C (97.6 F) 2023 3:43 AM PATIENT TRANSITION SPECIALIST Respiratory Rate 14 2023 9:08 AM PATIENT TRANSITION SPECIALIST Oxygen Saturation 95% 2023 9:08 AM PATIENT TRANSITION SPECIALIST Inhaled Oxygen Concentration - - Weight 83.9 kg (185 lb) 2023 9:03 AM PATIENT TRANSITION SPECIALIST Height 170.2 cm (5' 7 ) 2023 9:03 AM PATIENT TRANSITION SPECIALIST Body Mass Index 28.98 2023 9:03 AM PATIENT TRANSITION SPECIALIST Plan of Treatment Health Maintenance Due Date [...] age to complete this [place] [address] [facility] MEDICAID - [place]
--- OUTSIDE RECORDS SUMMARY | 2024-11-01 14:20 | XMS_ITS | Clinical Summary ---
Author Organization [facility] Address [address], [facility] [address] [place] [address] Phone Care Team Providers Care Plug Shaper Hand Name Role Phone Darren Pan MD Primary Care Provider [phone] João Pedraza MD Unavailable Unavailable Allergies Active [...] age to complete this topic Insurance [address] Care Teams Plug Shaper Hand Relationship Specialty Start Date End Date Darren Pan MD PCP - General Internal Medicine 02/07/16 João Pedraza MD Consulting Physician Urology 02/07/16
--- OUTSIDE RECORDS SUMMARY | 2024-11-01 14:20 | XMS_ITS | Clinical Summary ---
Author Organization [facility] Address [address] [place] [address] Care Team Providers Care Ski Tow Operator Name Role Phone Sandro Reid MD Primary Care Provider [phone] Allergies No known active allergies Active Problems Problem Noted Date Diagnosed Date Depression 04/02/2014 Overview (10/08/2016): Depression Malignant neoplasm of urinary bladder 04/02/2014 Overview (10/08/2016): Bladder cancer Encounters Date Type Department Care Team Description 09/18/2024 8:46 AM CDT - 09/18/2024 11:59 PM CDT Hospital Encounter [address] [address] Encounter for screening mammogram for malignant neoplasm of breast Discharge Disposition: Discharge to home or self care 09/18/2024 8:43 AM CDT - 09/18/2024 11:59 PM CDT Hospital Encounter [address] [address] Personal history of nicotine dependence Discharge Disposition: Discharge to home or self care 09/15/[address] [address] Dory Qiu RN from Last 3 Months [...] on file 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 JR: Report ID: [id number] Reading Location: [id number] Procedure Note Terry Pereyra MD - 09/20/2024 [...] by Terry Pereyra M.D. JR: Report ID: [id number] Reading Location: [place] [address] Celsa Bi VELIZ IM [address] PROCEDURES Final [...] Insurance [employer] PPO Care Teams Ski Tow Operator Relationship Specialty Start Date End Date Sandro Reid MD [address] [place] [address] PCP - General Family Practice 09/18/24
--- OUTSIDE RECORDS SUMMARY | 2024-11-01 14:20 | XMS_ITS ---
Author Organization [facility] Address [address] [place] [address] Care Team Providers Care Metal Dealer Name Role Phone Sandro Reid MD Primary Care Provider [phone] Active Problems Problem Noted Date Diagnosed Date [...]
--- OUTSIDE RECORDS SUMMARY | 2024-11-01 14:20 | XMS_ITS | Referral Summary ---
Author Organization [facility] Address [address] [place] [address] Care Team Providers Care Paralegal Name Role Phone Sandro Reid MD Primary Care Provider [phone] Encounters Date Type Department Care Team Description 09/18/2024 8:43 AM CDT - 09/18/2024 11:59 PM CDT Hospital Encounter [address] [address] Personal history of nicotine dependence Discharge Disposition: Discharge to home or self care 09/18/2024 8:46 AM CDT - 09/18/2024 11:59 PM CDT Hospital Encounter [address] [address] Encounter for screening mammogram for malignant neoplasm of breast Discharge Disposition: Discharge to home or self care 09/15/[address] [address] Dory Qiu RN from Last 3 Months [...] on file Legal Sex Female 10:21 AM SPINNING MULE TENDER Gender Identity Not on file Sexual [...] by Terry Pereyra M.D., JR: Report ID: [id number] Reading Location: [place] [address] Procedure Note Terry Pereyra MD - 09/20/2024 [...] by Terry Pereyra M.D. JR: Report ID: [id number] Reading Location: [id number] Celsa Pat NP IMG CT PROCEDURES Final [...] Res ult from Last 3 [place] [address] [employer] PPO Care Teams Paralegal Relationship Specialty Start Date End Date Sandro Reid MD [address] [place], [place] [id number] PCP - General Family Practice 09/18/24
== END 2024-11-01 13:28 | disposition home or self-care (01) ==
LOC: ANHIMG 13:30
PROVIDERS: PCP Nurse Practitioner Adult Health; Visit Provider Nurse Practitioner Adult Health
DX: M79.662 Pain in left lower leg (principal)
CPT/HCPCS: 93971

== ENCOUNTER 2025-04-30 09:12 | Outpatient (CLI) | payer OTHER, SELFPAY ==
--- OUTSIDE RECORDS SUMMARY | 2025-04-30 09:57 | XMS_ITS | Clinical Summary ---
Author Organization [facility] Address [address], [facility] [address] [place] [address] Phone Care Team Providers Care Combination Welder Name Role Phone Darren Pan MD Primary Care Provider [phone] João Pedraza MD Unavailable Unavailable Allergies Active [...] 1:00 PM CDT Height 172.7 cm (5' 8) 03/27/2016 1:00 PM CDT Body Mass Index 25.39 03/27/2016 1:00 PM CDT Plan of Treatment Health Maintenance Due Date Last Done Comments Hepatitis C Virus (HCV) Screening 1955 TdaP Immunization 1955 Cologuard 2000 Immunochemical Fecal Occult Blood 2000 Pneumococcal Immunization (5 0+ years) (1 of 1 - PCV) 2005 Zoster Immunization (1 of 2) 2005 Influenza Immunization (#1) 2025 SARS-COV-2 Immunization (3 - 2024- season) 2025 02/17/2021, 01/27/2021 Colonoscopy 03/31/2026 03/31/2016 Colorectal Cancer Screening 03/31/2026 Respiratory Syncytial Virus (RSV) Immunization (Adult) (1 - 1-dose 75+ series) 2030 Hepatitis B Immunization Aged Out No longer eligible based on patient's age to complete this topic Human Papillomavirus (HPV) Immunization Aged Out No longer eligible b ased on patient's age to complete this topic Meningococcal Immunization (ACWY) Aged Out No longer eligible b ased on patient's age to complete this topic Rotavirus Immunization Aged Out No lo nger eligible based on patient's age to complete this topic Insurance [address] [id number] [place] [address] Care Teams Combination Welder Relationship Specialty Start Date End Date Darren Pan MD PCP - General Internal Medicine 02/07/16 João Pedraza MD Consulting Physician Urology 02/07/16
--- OUTSIDE RECORDS SUMMARY | 2025-04-30 09:57 | XMS_ITS | Clinical Summary ---
Author Organization [facility] Address [address] [place] [address] Care Team Providers Care Custom Ski Maker Name Role Phone Sandro Reid MD Primary Care Provider [phone] Allergies Active Allergy Reactions Criticality Noted Date Comments Codeine Other (See comments) 11/01/2024 Milk Muscle pain Medium 11/01/2024 Oxytocin Muscle pain,Other (S ee comments) Medium 02/07/2016 Severe cramping Medications albuterol HFA (PROVENTIL HFA,VENTOLIN HFA,PROAIR HFA) 90 mcg/actuation inhaler Inhale 2 puffs every 4 (four) hours as needed 2023 Active cholecalciferol 400 unit capsule Take 1 tablet/capsu le (400 Units total) by mouth daily Active clonazePAM (KlonoPIN) 1 mg tablet Take 1 tablet (1 mg total) by mouth daily as needed 01/08/2016 Active traZODone (DESYREL) 100 mg tablet Take 2 tablets (200 mg total) by mouth nightly Active diclofenac DR (VOLTAREN) 75 mg EC tablet Take 1 tablet (75 mg total) by mouth 2 (two) times a day Active buPROPion (WELLBUTRIN) 75 mg tablet Take 1 tablet (75 mg total) by mouth 2 (two) times a day Active azithromycin (ZITHROMAX) 250 mg tablet Take 1 tablet (250 mg total) by mouth daily 2023 Active atorvastatin (LIPITOR) 40 mg tablet Take 1 tablet (40 mg total) by mouth daily 10/27/2024 Active oxyBUTYnin XL (DITROPAN-XL) 5 mg 24 hr tablet Take 1 tablet (5 mg total) by mouth daily 11/06/2024 Active fluticasone propion-salmete roL (ADVAIR DISKUS) 250-50 mcg/dose diskus inhaler Inhale 1 puff 2 (two) times a day Active Active Problems Problem Noted Date Diagnosed Date Abscess of groin, left 03/09/2025 Acute exacerbation of emphysema 03/09/2025 Anxiety state 03/09/2025 Snoring 03/09/2025 Edema 03/09/2025 Fall 03/09/2025 Dysesthesia 03/09/2025 Fatigue 03/09/2025 Hot flashes 03/09/2025 Hyperlipidemia 03/09/2025 Hypersomnia 03/09/2025 Left shoulder pain 03/09/2025 Low back pain 03/09/2025 Lumbar radicular pain 03/09/2025 Muscle cramp 03/09/2025 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 03/09/2025 Knee pain 03/09/2025 Pneumonia 03/09/2025 Primary osteoarthritis involving multiple joints 03/09/2025 Sleep apnea 03/09/2025 Smoker 03/09/2025 Tenderness of left calf 03/09/2025 Urinary incontinence 03/09/2025 Trigger finger 03/09/2025 Viral warts 03/09/2025 Weight gain 03/09/2025 Primary osteoarthritis of knees, bilateral 01/11 Depression 04/02/2014 Overview (10/08/2016): Depression Malignant neoplasm of urinary bladder 04/02/2014 Overview (10/08/2016): Bladder cancer Encounters Date Type Department Care Team Description 04/11/2025 Telephone [facility] Orthopedics and Sports Medicine [address] [place] [address] [address] [place] [address] Migdalia Awad PA 03/09/2025 8:15 AM CDT Office Visit [facility] Orthopedics and Sports Medicine [address] [place] [address] [address] [place] [address] Migdalia Awad PA Primary osteoarthritis of knees, bilateral (Primary Dx) from Last 3 Months Surgical History Surgery Date Site/Laterality Comments APPENDECTOMY Appendectomy OTHER SURGICAL HISTORY D&C Family History Medical History Relation Name Comments Lymphoma Father Mitral valve prolapse Father Multip le myeloma; Liver cancer Mother Cancer, liver; Lung cancer Paternal Grandfather Relation Name Status Comments Father Mother Paternal Grandfather Social History Tobacco Use Types Packs/Day Years Used Date Smoking Tobacco: Former Cigarettes Tobacco Cessation:Counseling Given: Not Answered Comments:Smoking History Packs/day: 0.5 Packs Alcohol Use Standard Drinks/Week Comments No 0 (1 standard drink = 0.6 oz pur e alcohol) AUDIT-C Answer Date Recorded Q1: How often do you have a drink containing alcohol? Never 01/11/2025 Q2: How many drinks containi ng alcohol do you have on a typical day when you are drinking? Patient does not drink Q3: How often do you have si x or more drinks on one occasion? 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 Gender Identity Not on file Sexual Orientation Not on file Obstetrics History Para Term AB IAB SAB Ectopic Multiple Livin g Live Births 4 2 2 Date Outcome GA Total Labor Labor/2nd/3rd Weight Sex Type Anes PTL Lorraine A1 A5 Name Clin Term Term Last Filed Vital Signs Vital Sign Reading Time Taken Comments Blood Pressure 138/84 03/09/2025 8:10 AM CDT Pulse 76 03/09/2025 8:10 AM CDT Temperature - - Respiratory Rate - - Oxygen Saturation 94% 04/02/2014 2:53 PM CDT Inhaled Oxygen Concentration - - Weight 112 kg (247 lb) 03/09/2025 8:10 AM CDT Height 171.5 cm (5' 7.5) 03/09/2025 8:10 AM CDT Body Mass Index 38.11 03/09/2025 8:10 AM CDT Plan of Treatment Health Maintenance [...] 65+ 2020 Covid-19 Vaccine (3 - season) 2025, 01/27/2021 Influenza Vaccine (#1) 2025 Breast Cancer Screening-Mammogram 09/18/2025 025 Lung Cancer Screening 09/19/2025 09/18/2024 Procedures Procedure Name Priority Date/Time Associated Diagnosis Comments MD ARTHROCENTESIS ASPIR&/INJ MAJOR JT/BURSA W/O US Routine 03/09/2025 8:15 AM CDT Primary osteoarthritis of knees, bilateral MD ARTHROCENTESIS ASPIR&/INJ MAJOR JT/BURSA W/O US Routine 03/09/2025 8:15 AM CDT Primary osteoarthritis of knees, bilateral CT LUNG CANCER SCREENING Schedule Routine, Read Routine (OP Routine) 09/18/2024 9:26 AM CDT Personal history of nicotine dependence SCREENING MAMMOGRAM BILATERAL W LINH Schedule Routine, Read Routine (OP Routine) 09/18/2024 9:00 AM CDT Encounter for screening mammogram for malignant neoplasm of breast from Last 3 Months or Most Recently Relevant to Health Maintenance Results * MD ARTHROCENTESIS ASPIR&/INJ MAJOR JT/BURSA W/O US (03/09/2025 8:15 AM CDT) Narrative Madhu Flores MD - 03/09/2025 8:15 AM CDT Madhu Flores MD 03/13/2025 3:22 PM Large Joint (Hip, Knee, Shoulder) Injection: R knee Performed by: Migdalia Awad PA Authorized by: Migdalia Awad PA Large Joint Injection/Aspiration: Consent Given by: Patient Site marked: the procedure site was marked Timeout: prior to procedure the correct patient, procedure, and site was verified Verbal consent obtained: Yes Supporting Documentation: Indications: Pain and joint swelling Procedure Details: Location: Knee Site: R knee Prep: patient was prepped and draped in usual sterile fashion Needle Size: 18 G Approach: Anterolateral Medications: 60 mg hyaluronate sodium, stabilized 60 mg/3 mL Migdalia RUSS IN CLINIC/BEDSIDE ORD ERABLES Final Result * MD ARTHROCENTESIS ASPIR&/INJ MAJOR JT/BURSA W/O US (03/09/2025 8:15 AM CDT) Madhu Austin MD - 03/09/2025 8:15 AM CDT Madhu Flores MD 03/13/2025 3:22 PM Large Joint (Hip, Knee, Shoulder) Injection: L knee Performed by: Migdalia Awad PA Authorized by: Migdalia Awad PA Large Joint Injection/Aspiration: Consent Given by: Patient Site marked: the procedure site was marked Timeout: prior to procedure the correct patient, procedure, and site was verified Verbal consent obtained: Yes Supporting Documentation: Indications: Pain and joint swelling Procedure Details: Location: Knee Site: L knee Prep: patient was prepped and draped in usual sterile fashion Needle Size: 18 G Approach: Anterolateral Medications: 60 mg hyaluronate sodium, stabilized 60 mg/3 mL Migdalia RUSS IN CLINIC/BEDSIDE ORD ERABLES Final Result * CT Lung Cancer Screening (09/18/2024 9:26 [...] by Terry Pereyra M.D. JR: Report ID: [id number] Reading Location: [place] [address] Procedure Note Terry Pereyra MD - 09/20/2024 [...] by Terry Pereyra M.D. JR: Report ID: [id number] Reading Location: [id number] Celsa Pat NP [facility] CT PROCEDURES Final Result * Screening Mammogram [...] no suspicious interval change. Celsa Pat NP [facility] MAMMO PROCEDURES Final Res ult from Last 3 Months or Most Recently Relevant to Health Maintenance Insurance [employer] PPO Care Teams Custom Ski Maker Relationship Specialty Start Date End Date Sandro Reid MD [address] [place], [place] [phone] PCP - General Family Practice 09/18/24
--- OUTSIDE RECORDS SUMMARY | 2025-04-30 09:57 | XMS_ITS ---
Author Organization [facility] Address [address] [place] [address] Care Team Providers Care Manager House Name Role Phone Sandro Reid MD Primary Care Provider [phone] Active Problems Problem Noted Date Diagnosed Date [...]
--- OUTSIDE RECORDS SUMMARY | 2025-04-30 09:57 | XMS_ITS | Clinical Summary ---
Author Organization [facility] [employer] Address [address] [place] [address] Care Team Providers Care Furniture And Bedding Inspector Name Role Phone Unavailable Primary Care Provider Unavailabl e Source Comments [facility] [employer],non-owned Affiliates and Associated Physician Practices is amultiple site organization consisting of ambulatory clinics and hospital sitesin [place], [place] and [place]. This disclosure is being madepursuant to the Care Everywhere program and may not contain all information available regarding this patient. Last updated 18.[facility] [employer] Allergies No known active allergies Medications * [...] on file Legal Sex Female 3:42 AM STOCK CHECKER Gender Identity Not on file Sexual Orientation Not on file Last Filed Vital Signs Vital Sign Reading Time Taken Comments Blood Pressure 185/99 2023 9:03 AM STOCK CHECKER Pulse 58 2023 9:08 AM STOCK CHECKER Temperature 36.4 C (97.6 F) 2023 3:43 AM STOCK CHECKER Respiratory Rate 14 2023 9:08 AM STOCK CHECKER Oxygen Saturation 95% 2023 9:08 AM STOCK CHECKER Inhaled Oxygen Concentration - - Weight 83.9 kg (185 lb) 2023 9:03 AM STOCK CHECKER Height 170.2 cm (5' 7) 2023 9:03 AM STOCK CHECKER Body Mass Index 28.98 2023 9:03 AM STOCK CHECKER Plan of Treatment Health Maintenance Due Date [...] 2005 ZOSTER VACCINE (1 of 2) 2005 DEPRESSION SCREENING 07/05/2024 MEDICARE AWV CALENDAR YEAR 2024 COVID-19 VACCINE (2 - 2024-2 6 season) 2025 01/27/2021 INFLUENZA VACCINE (#1) 2025 Respiratory Syncytial Virus (RSV) Vaccine Pt: [...] age to complete this [place] [address] MEDICARE [facility] MEDICAID - [place]
[2025-04-30 18:29] LABS: Hematocrit 41.1 % (37.0-47.0); Hemoglobin 13.4 g/dL (12.0-15.0); Mean Corpuscular HGB Conc 32.6 g/dl (32-36); Mean Corpuscular Hemoglobin 31.5 pg (26-34); Mean Corpuscular Volume 96.5 fl (80-100); Platelet Count Result 213 k/mm3 (150-375); Red Blood Count 4.26 M/mm3 (4.2-5.4); White Blood Count 7.1 K/mm3 (4.5-10.0)
[2025-04-30 18:47] LABS: Alanine Aminotransferase 59 U/L (6-35); Albumin Level 4.4 g/dL (3.5-5.1); Alkaline Phosphatase 106 U/L (38-126); Anion Gap 10 mmol/L (4-12); Aspartate Amino Transferase 68 U/L (14-36); Bilirubin,Total 0.5 mg/dL (0.2-1.3); Blood Urea Nitrogen 17 mg/dL (7-17); Calcium 9.1 mg/dL (8.4-10.2); Carbon Dioxide 24 mmol/L (22-30); Chloride 103 mmol/L (98-107); Cholesterol 197 mg/dL (0-200); Estimated Glomerular Filt Rate > 60; Glucose 101 mg/dL (65-110); HDL Direct 46 mg/dL; Potassium 4.3 mmol/L (3.4-5.0); Sodium 137 mmol/L (137-145); Total Protein 7.2 g/dL (6.3-8.2); Triglycerides 144 mg/dL (<150)
== END 2025-04-30 09:13 | disposition home or self-care (01) ==
LOC: ANHBWCLAB 09:14
PROVIDERS: PCP Nurse Practitioner Adult Health; Visit Provider Nurse Practitioner Adult Health
DX: E78.5 Hyperlipidemia, unspecified (principal)
CPT/HCPCS: 36415; 80053; 80061; 85027

== ENCOUNTER 2025-05-24 09:57 | Outpatient (CLI) | payer OTHER, SELFPAY ==
--- NOTE | 2025-05-24 10:13 | ECG_ITS ---
Test Date: 2025-05-24 10:35:58 Measurements Intervals [place] Rate: 85 P: 64 MN: 158 QRS: 17 QRSD: 99 T: 24 QT: 373 QTc: 445 Interpretive Statements NORMAL SINUS RHYTHM No previous ECG available for comparison Electronically Signed On 05-24-2025 14:43:23 DRILLER MULTIPLE SPINDLE by Dio Liu M.D.
[2025-05-24 10:59] LABS: Hematocrit 37.8 % (37.0-47.0); Hemoglobin 13.0 g/dL (12.0-15.0); Immature Granulocyte Percent A 0.2 % (0-0.5); Lymphocytes Absolute Auto 1.86 K/mm3 (0.9-3.2); Mean Corpuscular HGB Conc 34.4 g/dl (32-36); Mean Corpuscular Hemoglobin 31.8 pg (26-34); Mean Corpuscular Volume 92.4 fl (80-100); Nucleated Red Blood Cells Absolute Auto 0.000 K/mm3 (0.0-0.012); Nucleated Red Blood Cells Perc 0.0 % (0.0-0.2); Platelet Count Result 181 k/mm3 (150-375); Red Blood Count 4.09 M/mm3 (4.2-5.4); White Blood Count 5.3 K/mm3 (4.5-10.0)
[2025-05-24 11:17] LABS: Add Urine Microscopic? YES; Appearance Urine Clear (Clear); Glucose Urine UA Negative (Negative); Leukocyte Esterase Ur Trace LEU/UL (Negative); Nitrate Urine Negative (Negative); Non Pathogenic Casts 0-2; Specific Grav Ur 1.009 (1.001-1.035)
[2025-05-24 11:20] LABS: Anion Gap 8 mmol/L (4-12); Blood Urea Nitrogen 12 mg/dL (7-17); Calcium 9.2 mg/dL (8.4-10.2); Carbon Dioxide 26 mmol/L (22-30); Chloride 104 mmol/L (98-107); Estimated Glomerular Filt Rate 57; Glucose 95 mg/dL (65-110); Potassium 4.0 mmol/L (3.4-5.0); Sodium 138 mmol/L (137-145)
--- OUTSIDE RECORDS SUMMARY | 2025-05-24 11:44 | XMS_ITS | Clinical Summary ---
Author Organization [facility] [employer] Address [address] [place] [address] Care Team Providers Care Supervisor Pole Yard Name Role Phone Unavailable Primary Care Provider Unavailabl e Source Comments [facility],non-owned Affiliates and Associated Physician Practices is amultiple site organization consisting of ambulatory clinics and hospital sitesin [place], [place], [place] and [place]. This disclosure is being madepursuant to the Care Everywhere program and may not contain all information available regarding this patient. Last updated 18.[facility] Allergies No known active allergies Medications * [...] on file Legal Sex Female 3:42 AM HOSPITAL PHARMACIST Gender Identity Not on file Sexual Orientation Not on file Last Filed Vital Signs Vital Sign Reading Time Taken Comments Blood Pressure 185/99 2023 9:03 AM HOSPITAL PHARMACIST Pulse 58 2023 9:08 AM HOSPITAL PHARMACIST Temperature 36.4 C (97.6 F) 2023 3:43 AM HOSPITAL PHARMACIST Respiratory Rate 14 2023 9:08 AM HOSPITAL PHARMACIST Oxygen Saturation 95% 2023 9:08 AM HOSPITAL PHARMACIST Inhaled Oxygen Concentration - - Weight 83.9 kg (185 lb) 2023 9:03 AM HOSPITAL PHARMACIST Height 170.2 cm (5' 7) 2023 9:03 AM HOSPITAL PHARMACIST Body Mass Index 28.98 2023 9:03 AM HOSPITAL PHARMACIST Plan of Treatment Health Maintenance Due Date [...] age to complete this topic [place] [address] MEDICARE [facility] MEDICAID - [place]
--- OUTSIDE RECORDS SUMMARY | 2025-05-24 11:45 | XMS_ITS ---
Author Organization [facility] Address [address] [place] [address] Care Team Providers Care Director Of Cardiology Service Line Name Role Phone Sandro Reid MD Primary Care Provider [phone] Active Problems Problem Noted Date Diagnosed Date [...]
--- OUTSIDE RECORDS SUMMARY | 2025-05-24 11:45 | XMS_ITS | Clinical Summary ---
Author Organization [facility] Address [address] [place] [address] Care Team Providers Care Power Generation Technician Name Role Phone Sandro Reid MD Primary Care Provider [phone] Allergies Active Allergy Reactions Criticality Noted Date [...] Type Department Care Team Description 04/11/2025 Telephone [facility] Orthopedics and Sports Medicine [address] [place] [address] [address] [place] [address] Migdalia Awad PA 03/09/2025 8:15 AM CDT Office Visit [facility] Orthopedics and Sports Medicine [address] [place] [address] [address] [place] [address] Migdalia Awad PA Primary osteoarthritis [...] on file 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 JR: Report ID: [id number] Reading Location: [place] [address] Procedure Note Terry Pereyra MD - 09/20/2024 [...] by Terry Pereyra M.D. JR: Report ID: [id number] Reading Location: [id number] Celsa Pat NP [facility] CT PROCEDURES Final Result * Screening Mammogram [...] no suspicious interval change. Celsa Pat NP [facility] MAMMO PROCEDURES Final Res ult from Last 3 Months or Most Recently Relevant to Health Maintenance Insurance [employer] PPO Care Teams Power Generation Technician Relationship Specialty Start Date End Date Sandro Reid MD [address] [place], [place] [phone] PCP - General Family Practice 09/18/24
== END 2025-05-24 09:58 | disposition home or self-care (01) ==
PROVIDERS: PCP Nurse Practitioner Adult Health; Visit Provider Nurse Practitioner Family
DX: J44.9 Chronic obstructive pulmonary disease, unspecified (principal); R53.83 Other fatigue
CPT/HCPCS: 36415; 80048; 81001; 85025; 93005